=== PATIENT | female | born 1995 | race African-American/Black ===

== ENCOUNTER 2021-12-16 14:43 | Outpatient (CLI) | payer BC, SELFPAY | END 2021-12-16 14:44 | disposition home or self-care (01) | PROVIDERS: Visit Provider Obstetrics & Gynecology | DX: O20.0 Threatened abortion (principal); Z3A.00 Weeks of gestation of pregnancy not specified | CPT/HCPCS: 36415; 84702; 85461 ==

== ENCOUNTER 2021-12-18 11:40 | Outpatient (RCR) | payer BC, SELFPAY | END 2022-03-18 23:59 | disposition home or self-care (01) | LOC: ANHLAB 11:40 | PROVIDERS: Visit Provider Obstetrics & Gynecology | DX: O03.9 Complete or unspecified spontaneous abortion without complication (principal); Z3A.01 Less than 8 weeks gestation of pregnancy | CPT/HCPCS: 36415; 84702 ==

== ENCOUNTER 2023-07-27 16:51 | Outpatient (CLI) | payer BC, SELFPAY ==
--- NOTE | ~2023-07-27 | US_ITS ---
EXAMINATION: US OB <= 14 weeks fetus INDICATION: THREATENED MISCARRIAGE IN FIRST TRIMESTER TECHNIQUE: Sonography of the pelvis was performed by transabdominal and transvaginal techniques. COMPARISON: None. RESULT: Uterus: 8.8 x 6.2 x 8.9 cm. Anteverted. Homogenous myometrium. Intrauterine gestational sac: Single present. Mean Sac Diameter: 2.66 cm, corresponding gestational age 7 week 5 days. Yolk sac: 0.4 cm . Embryo: Single present. [place] rump length: 1.36 cm, corresponding gestational age 7 weeks, 4 days. Gestational heart rate: present 155 bpm. Subgestational hematoma: Present, measuring 1.5 x 0.4 x 1.9. Right ovary: 5.0 x 3.0 x 3.3 cm. Vascular flow is present. 2.9 cm mostly hypoechoic right ovarian cyst with surrounding hypervascularity, likely resolving corpus luteal cyst. Left ovary: 2.9 x 1.4 x 2.2 cm. Vascular flow is present. No adnexal mass. Pelvis free fluid: None. IMPRESSION: Single, live intrauterine gestation. 1.5 cm subcutaneous gestational hematoma. Estimated Gestational Age: 7 weeks, 4 days by crown rump length. DARLENE by ultrasound 03/10/2024. Reviewed, dictated and finalized at location K. IMPRESSION: Single, live intrauterine gestation. 1.5 cm subcutaneous gestational hematoma. Estimated Gestational Age: 7 weeks, 4 days by crown rump length. DARLENE by ultras ound 03/10/2024.
== END 2023-07-27 16:52 | disposition home or self-care (01) ==
LOC: ANHIMG 16:56
PROVIDERS: Visit Provider Obstetrics & Gynecology
DX: O20.0 Threatened abortion (principal); Z3A.01 Less than 8 weeks gestation of pregnancy
CPT/HCPCS: 76801

== ENCOUNTER 2023-08-17 13:34 | Emergency (ER) | payer BC, SELFPAY ==
[2023-08-17 13:48] VITALS: BP 115/78; PULSE 106; RESP 18; TEMP 36.8; O2SAT 99
[2023-08-17 14:17] LABS: Basophils Percent Auto 0.4 % (0.2-1.2); Eosinophils Percent Auto 0.2 % (0-4.4); Hematocrit 42.9 % (37.0-47.0); Hemoglobin 14.1 g/dL (12.0-15.0); Immature Granulocyte Absolute 0.01 K/mm3 (0.00-0.031); Immature Granulocyte Percent A 0.2 % (0-0.5); Lymphocytes Absolute Auto 1.66 K/mm3 (0.9-3.2); Lymphocytes Percent Auto 32.7 % (18.3-44.2); Mean Corpuscular HGB Conc 32.9 g/dl (32-36); Mean Corpuscular Volume 85.3 fl (80-100); Mean Platelet Volume 9.2 fl (7.4-10.4); Monocytes Absolute Auto 0.4 K/mm3 (0.1-0.6); Monocytes Percent Auto 8.7 % (2.6-8.5); Neutrophils Absolute Auto 2.9 K/mm3 (1.3-6.7); Neutrophils Percent Auto 57.8 % (45.5-73.1); Platelet Count Result 261 k/mm3 (150-375); Red Blood Count 5.03 M/mm3 (4.2-5.4); Red Cell Distribution Width 12.5 % (11.5-14.5); White Blood Count 5.1 K/mm3 (4.5-10.0)
[2023-08-17 14:27] LABS: Alanine Aminotransferase 30 U/L (6-35); Albumin Level 4.9 g/dL (3.5-5.1); Alkaline Phosphatase 43 U/L (38-126); Anion Gap 14 mmol/L (8-16); Aspartate Amino Transferase 35 U/L (14-36); Bilirubin,Total 1.1 mg/dL (0.2-1.3); Blood Urea Nitrogen 11 mg/dL (7-17); Calcium 9.9 mg/dL (8.4-10.2); Carbon Dioxide 20 mmol/L (22-30); Chloride 100 mmol/L (98-107); Estimated CRCL calculation 118 ml/min; Estimated Glomerular Filt Rate > 60; Glucose 89 mg/dL (65-110); Potassium 3.3 mmol/L (3.4-5.0); Sodium 134 mmol/L (137-145)
[2023-08-17 15:35] LABS: Appearance Urine Cloudy (Clear); Bacteria Urine None Seen /hpf; Bilirubin Urine 1+ (Negative); Blood Urine Negative (Negative); Color Urine Dark Yellow (Yellow); Glucose Urine UA Negative (Negative); Hyaline Casts Urine Present /lpf; Ketones Urine 4+ mg/dL (Negative); Leukocyte Esterase Ur Negative LEU/UL (Negative); Need Manual Microscopic Reviewed; Nitrate Urine Negative (Negative); Protein Urine 2+ mg/dL (Negative); Specific Grav Ur 1.035 (1.001-1.035); Squamous Epithelial Cell Urine Few /hpf (Few); WBC Urine 0-5 /hpf; pH Urine 5.5 (5.0-9.0)
[2023-08-17 15:38] LABS: Add Urine Microscopic? YES
--- NOTE | 2023-08-17 15:47 | ED.GENADULT ---
HPI - General Adult General Chief complaint: Nausea/Vomiting/Diarrhea Stated complaint: N/V Time Seen by Provider: 08/17/23 15:20 History of Present Illness HPI narrative: 27-year-old female presented the ED for evaluation for nausea vomiting and decreased p.o. intake. Patient is 11 weeks and [facility] Patient was advised to present to the ED for IV fluids. Patient does have lower abdominal cramping. Patient denies any vaginal bleeding vaginal discharge. Patient had been prescribed B6 but she states this made her nauseous. Patient was then afraid to take her Zofran. Related Data Allergies Allergy/AdvReac Type Severity Reaction Status Date / Time No Known Allergies Allergy Verified 08/17/23 15:06 Review of Systems Review of Systems: All systems reviewed & are unremarkable except as noted in HPI and below Exam Narrative: APPEARANCE: Well appearing, no pain, no distress, well-nourished. HEAD: normocephalic, atraumatic. EYES: PERRLA/EOMI, conjunctivae clear. NOSE: Normal no drainage NECK: Supple. No adenopathy, no masses. RESPIRATORY: Airway patent, respirations nonlabored. Clear to auscultation bilaterally, no rales, rhonchi, wheezing. CARDIOVASCULAR: Regular rate and rhythm without murmurs rubs or gallops. ABDOMINAL: Soft, nontender, nondistended, normal bowel sounds MUSCULOSKELETAL: Moves all extremities. Strength/ROM intact, No edema, No calf tenderness. NEURO: Alert. Cranial nerves II through XII intact. Grossly intact SKIN: Warm, dry. Normal Color Course Course Emergency Course: 27-year-old female that is likely presented the ED for evaluation for nausea abdominal cramping and dehydration. Patient has no evidence of urinary tract infection and patient's labs showed no acute abnormalities. Patient did feel improved with rehydration. Vital Signs Vital signs: Vital Signs Temperature 98.2 F 08/17/23 13:48 Pulse Rate 106 H 08/17/23 13:48 Respiratory Rate 18 08/17/23 13:48 Blood Pressure 115/78 08/17/23 13:48 Pulse Oximetry 99 08/17/23 13:48 Oxygen Delivery Room Air 08/17/23 13:48 Temperature 98.2 F 08/17/23 13:48 Pulse Rate 74 08/17/23 17:16 Respiratory Rate 20 08/17/23 17:16 Blood Pressure 115/78 08/17/23 13:48 Pulse Oximetry 100 08/17/23 17:16 Oxygen Delivery Room Air 08/17/23 13:48 Medical Decision Making Differential Diagnosis Differential Diagnosis: UTI, hyperemesis gravidarum, dehydration, abdominal cramping Vital Signs Vital Signs: Vital Signs Temperature 98.2 F 08/17/23 13:48 Pulse Rate 106 H 08/17/23 13:48 Respiratory Rate 18 08/17/23 13:48 Blood Pressure 115/78 08/17/23 13:48 Pulse Oximetry 99 08/17/23 13:48 Oxygen Delivery Room Air 08/17/23 13:48 Temperature 98.2 F 08/17/23 13:48 Pulse Rate 74 08/17/23 17:16 Respiratory Rate 20 08/17/23 17:16 Blood Pressure 115/78 08/17/23 13:48 Pulse Oximetry 100 08/17/23 17:16 Oxygen Delivery Room Air 08/17/23 13:48 Lab Data 08/17/23 14:09 08/17/23 14:09 Labs: Lab Results 08/17/23 08/17/23 Range/Units 14:09 15:07 WBC 5.1 (4.5-10.0) K/mm3 RBC 5.03 (4.2-5.4) M/mm3 Hgb 14.1 (12.0-15.0) g/dL Hct 42.9 (37.0-47.0) % MCV 85.3 (80-100) fl MCH 28.0 (26-34) pg MCHC 32.9 (32-36) g/dl RDW 12.5 (11.5-14.5) % Plt Count 261 (150-375) k/mm3 MPV 9.2 (7.4-10.4) fl Immature Gran % (Auto) 0.2 (0-0.5) % Neut % (Auto) 57.8 (45.5-73.1) % Lymph % (Auto) 32.7 (18.3-44.2) % [place] % (Auto) 8.7 H (2.6-8.5) % Eos % (Auto) 0.2 (0-4.4) % Baso % (Auto) 0.4 (0.2-1.2) % Lymph # (Auto) 1.66 (0.9-3.2) K/mm3 [place] # (Auto) 0.4 (0.1-0.6) K/mm3 Eos # (Auto) 0.0 (0-0.3) K/mm3 Baso # (Auto) 0.0 (0.0-0.1) K/mm3 Abs Immat Gran (auto) 0.01 (0.00-0.031) K/mm3 Absolute Neuts (auto) 2.9 (1.3-6.7) K/mm3 Absolute Nucleated RBC 0.0
[2023-08-17] MEDS: SODIUM CHLORIDE 0.9% IV 1,000 ML 999 ML IV CONT (16:02)
[2023-08-17 17:16] VITALS: PULSE 74; RESP 20; O2SAT 100
== END 2023-08-17 17:16 | disposition home or self-care (01) ==
PROVIDERS: General Practice; Emergency Provider Emergency Medicine
DX: O21.9 Vomiting of pregnancy, unspecified (principal); Z3A.00 Weeks of gestation of pregnancy not specified
CPT/HCPCS: 36415; 80053; 81001; 85025; 96360; 99283; J7030

== ENCOUNTER 2024-02-24 05:07 | Inpatient (IN) | payer BC, OTHER, SELFPAY ==
[2024-02-24] VITALS (14 sets, daily range): BP systolic 99–131; BP diastolic 60–90; PULSE 63–82; RESP 15–18; TEMP 36.4–37.1; O2SAT 99–100; BMI 25.0
[2024-02-24 05:47] LABS: Basophils Percent Auto 0.2 % (0.2-1.2); Eosinophils Percent Auto 0.2 % (0-4.4); Hematocrit 37.3 % (37.0-47.0); Hemoglobin 11.7 g/dL (12.0-15.0); Immature Granulocyte Absolute 0.15 K/mm3 (0.00-0.031); Immature Granulocyte Percent A 1.8 % (0-0.5); Lymphocytes Absolute Auto 2.37 K/mm3 (0.9-3.2); Lymphocytes Percent Auto 27.7 % (18.3-44.2); Mean Corpuscular HGB Conc 31.4 g/dl (32-36); Mean Corpuscular Hemoglobin 26.5 pg (26-34); Mean Corpuscular Volume 84.4 fl (80-100); Mean Platelet Volume 10.3 fl (7.4-10.4); Monocytes Absolute Auto 0.8 K/mm3 (0.1-0.6); Monocytes Percent Auto 9.5 % (2.6-8.5); Neutrophils Absolute Auto 5.2 K/mm3 (1.3-6.7); Neutrophils Percent Auto 60.6 % (45.5-73.1); Platelet Count Result 245 k/mm3 (150-375); Red Blood Count 4.42 M/mm3 (4.2-5.4); Red Cell Distribution Width 13.6 % (11.5-14.5); White Blood Count 8.6 K/mm3 (4.5-10.0)
[2024-02-24] MEDS: OXYTOCIN 30 UNITS/NS 500 ML 30 UNITS/500 ML BAG 999 UNITS IV CONT (05:50)
--- NOTE | 2024-02-24 05:57 | P.PCNOB_ITS ---
OB - Vaginal Delivery Note Procedure Delivery date: 02/24/24 Induction method: None Delivery augmentation: Rupture of Membranes Delivery monitor: External FHT and External Uterine Route of delivery: Episiotomy description: None Laceration Description: None Specimen: No Quantitative Blood Loss (ml): 100 Anesthesia type: None Disposition: Floor Complications: No immediate complications [place] Baby Date of : 02/24/24 Time of : 05:47 Weeks of gestation at delivery: 38 Infant gender: Female presentation: vertex position: Left Occiput Anterior Placenta delivery description: Spontaneous Cord Vessel Description: 3 Vessels score one minute: 9 score five minutes: 9 Narrative: mother and baby skin to skin in stable condition
--- NOTE | 2024-02-24 05:57 | WPDOBADMIT ---
Obstetrics - Admit Note Admission Note: record reviewed. No pertinent additions to the history and/or any subsequent changes in the physical findings that are not consistent with the expected course of the were found. Additions to the history and/or subsequent changes in the physical findings follow. pt arrived with SVE 10/100/0, anticipate vaginal delivery
[2024-02-24] MEDS: IBUPROFEN 600 MG TABLET PO (06:38)
--- NOTE | 2024-02-24 09:30 | PC.NURSE ---
Admitted to at 0900, assessment completed, admission paperwork discussed.
[2024-02-24 12:00] LABS: Rapid Plasma Reagin Non-Reactive (NonReactive)
[2024-02-25] MEDS: IBUPROFEN 600 MG TABLET PO ×2 (01:00→16:40)
[2024-02-25 05:40] VITALS: BP 120/80; PULSE 68; RESP 16; TEMP 37; O2SAT 98
[2024-02-25 06:19] LABS: Hematocrit 31.7 % (37.0-47.0); Hemoglobin 9.7 g/dL (12.0-15.0)
--- NOTE | 2024-02-25 07:37 | PM.OBPNVD ---
OB - PN: Subj Subjective Date/time seen: 02/25/24 07:37 Interval history: pp day 1 doing well breast/bottle feeding plan d/c this evening OB - PN: Obj Data Labs 02/25/24 05:56 Labs: Laboratory Results - last 24 hr 02/24/24 02/25/24 05:30 05:56 Hgb 9.7 L Hct 31.7 L RPR Non-reactive OB - PN A/P Assessment and Plan (1) Vaginal delivery: Code(s): O80 - Encounter for full-term uncomplicated delivery Status: Acute Plan day: 1 Plan: routine care and discharge home Time Spent With Patient Time: Total time spent is greater than 50% in coordination of care (as documented) at patient's floor/unit and/or counseling patient: Review of Systems Review of Systems: All systems reviewed & are unremarkable except as noted in HPI and below Exam Const: General: cooperative and healthy appearing Chest: Chest palpation & inspection: normal inspection of the chest Resp: Effort & Inspection: normal respiratory effort GI: Other: soft Skin: General skin exam: normal color Neuro: General: patient oriented x3 Extrem: Right lower extremity: normal to inspection Left lower extremity: normal to inspection Psych: Appearance: grossly normal
--- NOTE | 2024-02-25 07:39 | PM.OBDSVD ---
DS: Admitting Diagnosis Discharge Date 02/25/2024 Admitting Diagnosis labor DS: Discharge Diagnosis Discharge Diagnosis (1) Vaginal delivery: Code(s): O80 - Encounter for full-term uncomplicated delivery Status: Acute OB - DS: Summary OB Procedures : None OB Procedures Intrapartum: Spontaneous Vag Delivery OB Procedures: : None Peripartum Data Laceration Description: None Episiotomy description: None Time Spent with Patient Time attestation: Total time spent providing and/or coordinating discharge services: DS: Data Data Completed and Pending Labs on day of discharge: Labs from last 24 hours 02/25/24 02/24/24 05:56 05:30 Hgb 9.7 L Hct 31.7 L RPR Non-reactive Discharge Plan Discharge Attending physician on discharge: Moreno Maurer Discharging Clinician: Ami Miranda Patient Disposition: Home, Self-Care Activity: pelvic rest Diet: regular Patient Instructions: Antibiotic Form Stand Alone Forms: General Discharge Information Follow-up/Referrals: Ami Miranda, CNM [Certified Nurse [employer]] - 4 Weeks Discharge Medications: New ibuprofen 600 mg Tablet 600 mg PO Q6H PRN (Reason: Cramping) Qty: 30 0RF Continued valacyclovir [Valtrex] 500 mg Tablet 500 mg PO DAILY Date of admission: 02/24/24 05:07 Primary Care Provider: PHYSICIAN NOT ON STAFF,NONSTAFF Admitting Provider: Moreno Maurer Attending physician on admission: Moreno Maurer Condition: Stable
[2024-02-25 07:40] VITALS: BP 121/82; PULSE 70; RESP 16; TEMP 36.5; O2SAT 100
--- NOTE | 2024-02-25 09:25 | PC.NURSE ---
0755 - Introductions made and name was written on the communication board for inpatient services. (Mother is face timing father of baby in detention so consult was only introduction)
[2024-02-25] MEDS: valACYclovir HCL 500 MG TABLET PO (09:46)
[2024-02-25] MEDS: POLYSACCHARIDE IRON COMPLEX 150 MG CAPSULE PO ×2 (09:46→16:40)
--- NOTE | 2024-02-25 14:10 | PC.NURSE ---
[id number] Purposefully rounded to assess for needs. Upon entering the room mother is using the restroom with infant swaddled and latched. Infants mouth is less than 90 degrees open and mother rates the pinching pain 5 on 0-10 scale. RN GUILLAUME takes infant to change positioning, change the wet diaper and stimulate for good wakefulness to latch. Mother returns from the restroom, gets comfortable, infants wet diaper changed a 2nd time, then placed upright [id number] on mothers chest. Demonstrated to mother how to stimulate with touch, skin, changing position, and massage. Once feeding cues are visualized was brought to the right breast in an asymmetrical position with mouth opened wide, chin buried into the breast with a deep effective latch. Mother denies pain and shared this latch feels so much better. We discuss the swallowing signs as infant demonstrates well. Reinforced understanding of milk production, transition of milk, signs of adequate intake, transition of stool, prevention/relief of engorgement, plugged ducts, mastitis, responsive watching for feeding cues, the different methods of stimulating infant to breastfeed 1-3 hours after the start of the last feeding, community resources, and when to call a provider using the resource of the feeding sheet, hand outs, along with the mom and baby guide. Mother voiced understanding of the information shared, is confident to continue effectively her at home, when to call for assistance, denies any additional assistance or education at this time. Reviewed with mother that if is receiving bottles of formula to protect her milk supply with pumping. Mother bottle fed through the night without pumping. Offered assistance to mother to assess pumping if she desires. Shared with mother that if is effectively 8-12 times in 24 hours she would not need to pump. Mother voiced understanding of the information but is distracted by her phone with her mother calling to ask questions. Reported to the Primary RN.
--- NOTE | 2024-02-25 16:02 | PC.NURSE ---
Patient viewed the discharge video Mother & Baby Care, The First Two Weeks . Patient was given the opportunity and encouraged to ask questions. Patient verbalized understanding of information shared and has been given the mother/baby guide for home reference.
[2024-02-26 08:30] VITALS: BP 108/77; PULSE 78; RESP 18; TEMP 36.6; O2SAT 100
== END 2024-02-25 19:06 | disposition home or self-care (01) | DRG 807 ==
LOC: ANHLDR 05:34 → ANHOB2 09:03
PROVIDERS: Advanced Practice Midwife; Admitting Provider Obstetrics & Gynecology; Visit Provider Obstetrics & Gynecology
DX: O62.3 Precipitate labor (principal); Z37.0 Single live birth; Z3A.38 38 weeks gestation of pregnancy
CPT/HCPCS: 36415; 85014; 85018; 85025; 86592; 86850; 86900; 86901; A9270; J2590

== ENCOUNTER 2024-06-20 06:28 | Emergency (ER) | payer OTHER, SELFPAY ==
[2024-06-20 06:45] VITALS: BP 129/89; PULSE 98; RESP 18; TEMP 36.6; O2SAT 98
--- NOTE | 2024-06-20 06:50 | ED.URI ---
HPI - URI/Sore Throat General Chief Complaint: Upper Respiratory Infection Stated Complaint: sinus pressure Time Seen by Provider: 06/20/24 06:50 Source: patient Limitations: no limitations History of Present Illness HPI Narrative: Patient is a 28-year-old female presents to the emergency department complete congestion, runny nose, body aches, chills, sore throat for the past 3 days. Patient has not taken her temperature at home. Patient notes that she has been taking [id number] medications for symptoms. Patient denies any sick contacts. Patient denies any cough, chest pain, difficulty breathing, nausea, diarrhea. Patient admits to 1 episode of emesis yesterday patient denies urinary discomfort. Related Data Home Medications Medication Instructions Recorded Confirmed valacyclovir 500 mg tablet 500 mg PO DAILY 01/17/24 01/17/24 (Valtrex) Allergies Allergy/AdvReac Type Severity Reaction Status Date / Time No Known Allergies Allergy Verified 08/17/23 15:06 Review of Systems Review of Systems: A 10 system review of systems was completed on the patient and is negative except for what is stated in the HPI. Nursing and ancillary documentation was reviewed. [facility] Family History Family History (Updated 01/17/24 @ 13:51 by Alisha Diaz RN) Father Diabetes mellitus Grandparent Cervical cancer Grandparent Cerebrovascular accident Social History Social History Smoking status: Never smoker Second hand tobacco smoke exposure: No Substance use: never Do You Feel Safe in your Home?: Yes Lack of Transportation: No Lack of Food: Never True Current Housing: I Have Housing Concerned About Future Housing: No Difficulty Paying Gas/Electric Bills: No Difficulty Paying for Meds: No Currently Unemployed: No Education: High School Diploma/GED Difficulty w/ Childcare or Family Care: No Spiritual care concerns: No Comments At time of signature, I have reviewed and agree with nursing past medical, surgical, social and family history unless otherwise noted. Please see the nursing chart for further information. There is no relevant family history pertinent to the presenting complaint. Exam Narrative: CONST: No acute distress. Well nourished. HENMT: Head is normocephalic and atraumatic. Moist mucous membranes. No posterior oropharynx erythema. Bilateral nasal turbinate edema. Bilateral clear rhinorrhea. EYES: No conjunctival icterus, injection, or pallor. PERRL. NECK: No meningeal signs. No cervical lymphadenopathy. RESP: Able to speak in full sentences. Normal respiratory effort. CTAB. CARDIO: Regular rate. Regular rhythm. 2+ DP and radial pulses bilaterally. GI: Nondistended. No tenderness to palpation. Soft. : No CVA tenderness to palpation. SKIN: No rashes or lesions noted on exposed skin. NEURO: Oriented x3. Moves all extremities. EXTREM/MSK/BACK: No pedal edema. PSYCH: Normal affect. Course Vital Signs Vital signs: Vital Signs Temperature 97.8 F 06/20/24 06:45 Pulse Rate 98 06/20/24 06:45 Respiratory Rate 18 06/20/24 06:45 Blood Pressure 129/89 06/20/24 06:45 Pulse Oximetry 98 06/20/24 06:45 Oxygen Delivery Room Air 06/20/24 06:45 Temperature 97.8 F 06/20/24 06:45 Pulse Rate 98 06/20/24 06:45 Respiratory Rate 18 06/20/24 06:45 Blood Pressure 129/89 06/20/24 06:45 Pulse Oximetry 98 06/20/24 06:45 Oxygen Delivery Room Air 06/20/24 06:45 MDM - URI/Sore Throat MDM Narrative Medical decision making narrative: Patient presents with the above complaint. Initial vitals are remarkable for no significant abnormalities. Physical examination as noted above. Differential diagnosis includes was not limited to: Viral syndrome, URI. Plan discussed: COVID/RSV chest influenza swab, Tylenol, Sudafed. Lab Data Attestation: I reviewed the patient's lab results. Labs: Lab Results 06/20/24 Range/Units
[2024-06-20] MEDS: ACETAMINOPHEN 500 MG TABLET 1000 MG PO (06:58)
[2024-06-20] MEDS: PSEUDOEPHEDRINE HCL 30 MG TABLET 60 MG PO (06:58)
[2024-06-20 07:19] LABS: Influenza A QL RT-PCR Negative (Negative); Influenza B QL RT-PCR Negative (Negative); RSV RNA, RT-PCR Negative (Negative); SARS-CoV-2 RNA PCR Negative (Negative)
[2024-06-20 07:34] VITALS: BP 120/70; PULSE 80; RESP 18; TEMP 36.7; O2SAT 99
== END 2024-06-20 07:35 | disposition home or self-care (01) ==
LOC: ANHED 07:02
PROVIDERS: Emergency Provider Student in an Organized Health Care Education/Training Program
DX: J06.9 Acute upper respiratory infection, unspecified (principal); Z20.822 Contact with and (suspected) exposure to COVID-19
CPT/HCPCS: 87637; 99283; A9270

== ENCOUNTER 2024-12-21 08:52 | Emergency (ER) | payer OTHER, SELFPAY ==
--- NOTE | ~2024-12-21 | CT_ITS ---
EXAMINATION: CT abdomen pelvis w con DATE: 12/21/2024 10:58 INDICATION: Abdominal pain. Vomiting. TECHNIQUE: Computed tomography (CT) of the abdomen and pelvis was performed with 100 mL Omnipaque 350 intravenous contrast. Automated exposure control and iterative reconstruction technique were employe d. The dose-length product was 348.17 mGy-cm. COMPARISON: None. FINDINGS: The visualized portions of the lung bases demonstrate mild atelectasis. No pleural effusion . The heart size is normal. No pericardial effusion. The liver, gallbladder, spleen, pancreas, adrena l glands, and kidneys are normal. There are no dilated loops of bowel. The appendix is normal. There are no pathologically enlarged lymph nodes. There is physiologic fluid in the pelvis. There is mild l umbar spondylosis. IMPRESSION: 1. No etiology for the patient's symptoms. Reviewed, dictated and finalized at location A. 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
[2024-12-21 09:00] VITALS: BP 124/80; PULSE 73; RESP 15; TEMP 36.4; O2SAT 100
--- OUTSIDE RECORDS SUMMARY | 2024-12-21 09:11 | XMS_ITS | Patient Health Summary ---
Author Organization [facility] Address [address] [address] Care Team Providers Care Fueler Name Role Phone Unavailable Primary Care Provider Unavailabl e Note from [facility] [place],non-owned Affiliates and Associated Physician Practices is amultiple site organization consisting of ambulatory clinics and hospital sitesin [place], [place], [place] and [place]. This disclosure is being madepursuant to the Care Everywhere program and may not contain all information available regarding this patient. Last updated 18.[facility] [employer] Allergies No known active allergies Medications * Be aware that medications may not be up to date on this document. Alwaysverify current medications with the patient. * Progesterone 200 MG capsule(Started 11/05/2023) Take 1 (one) capsule by mouth at bedtime 1 refill by 11/04/2024 Active Problems Problem Noted Date Diagnosed Date Short cervix 11/05/2023 Social History Tobacco Use Types Packs/Day Years Used Date Smoking Tobacco: Never Smokeless Tobacco: Never Tobacco Cessation:Counseling Given: Not Answered Alcohol Use Standard Drinks/Week Comments Never 0 (1 standard drink = 0.6 oz pur e alcohol) Sex and Gender Information Value Date Recorded Sex Assigned at Not on file Gender Identity Not on file Sexual Orientation Not on file Last Filed Vital Signs Vital Sign Reading Time Taken Comments Blood Pressure 112/68 11/05/2023 4:43 PM [employer] C[employer]TER Pulse - - Temperature 36.8 ??C (98.3 ??F) 11/05/2023 1:43 PM CS T Respiratory Rate 18 11/05/2023 1:43 PM [employer] AND [employer] C[employer]TER Oxygen Saturation 100% 11/05/2023 1:45 PM [employer] AND [employer] C[employer]TER Inhaled Oxygen Concentration - - Weight 64.9 kg (143 lb) 11/05/2023 1:27 PM [employer] C[employer] Height 175.3 cm (5' 9 ) 11/05/2023 1:38 PM [employer] AND [employer] C[employer]TER Body Mass Index 21.12 11/05/2023 1:27 PM [employer] C[employer]TER Procedures * SONOGRAM - COMPLETE(Performed 11/05/2023) Results * SONOGRAM - COMPLETE (11/05/2023 2:23 PM [employer] AND LABEL CUTTER) Anatomical Region Laterality Modality Other 11/05/2023 2:23 PM TAG AND LABEL CUTTER Narrative 11/05/2023 4:12 PM TAG AND LABEL CUTTER ?[facility] [place] [facility] ?PHONE: ??FAX: Pat. Name: ?NORMA LEAL Pat. No: ?[id number] Study Date: ?? 11/05/2023 ??2:23pm , Age: ? 1995, 28 Pregnancies: ?? 2, Ab 1 Height: ? 69 in Weight: ? 130 lb LMP: ?05/30/2023 GA by LMP: ?22w5d GA by US: ? 22w2d ?? DARLENE: 03/08/2024 GA Selected: ??22w5d (LMP) DARLENE: ?03/05/2024 Referring MD: Ari Maurer MD Parachute Repairer: ??Shruthi Marte RDMS CPT4: ? 92740,38031 BMI: ?19.2 Hist/Ind: ? Short cervix on outside exam MEASUREMENTS & AGE ? GROWTH EVALUATION Measurement ??GA ? Range ? Srce %for GA Ratios ----- ---- ------- BPD ??5.5 cm 22w5d (38m5s-25n5m) Hadl BPD 44% FL/BPD 0.67 HC ??19.8 cm 22w0d (00i0t-70b3m) Hadl HC ??11% FL/AC ??0.20 (0.20 - 0.24) AC ??18.0 cm 22w6d (48k9w-91m1h) Hadl AC ??47% HC/AC ??1.10 (1.04 - 1.23) FL ?? 3.7 cm 21w5d (33g7t-39c7s) Hadl FL ??12% CI ? 0.80 (0.70 - 0.86) HL ?? 3.8 cm 23w4d (20w0u-64p2m) Charles HL ??64% Cere 2.3 cm 21w2d (13a1e-13b0u) Hill Cere14% GA for sonogram 22w2d (49u5w-79f8y) ?? Weight Estimate: based on (BPD,HC,AC,FL) Avg ?Weight: 494 gm (422-567gm) Hadloc ? : 1lbs, 1oz ? Normal: 541 gm (406-676gm) Hadloc ? Wt% ? 26% for 22w5d Cervix: ??Length: 2.2 cm ??Range: 2.2-3.0 cm ??Approach: transvaginal ??Funneling: not present Heart Rate: 143 bpm Amniotic Fluid Index: 05.7cm (Deepest Pocket) PROCEDURE, TECHNIQUE Technique: transabdominal, transvaginal EVAL, PLACENTA Presentation: breech Umbilical Cord: 3 Vessels Placenta: anterior Previa: no previa seen Heart Rate: 143 bpm Amniotic Fluid Volume: normal Anatomy!Normal!Abnormal!Suboptimal!Prev. Seen!Comments Cranium ?! ?? x ??! ?! ?! ?! Mdl (CSP/Thal! ?? x ??! ?! ?! ?! Ventricles ?? ! ?? x ??! ?! ?! ?! Choroid Plexu! ?? x ??! ?! ?! ?! Cerebellum ?? ! ?? x ??! ?! ?! ?! Cisterna M. ??! ?? x ??! ?! ?! ?! Nuchal Fold ??! ?? x ??! ?! ?! ?! Orbits ? ! ?? x ??! ?! ?! ?! Profile ?! ?? x ??! ?! ?! ?! Nasal Bone ?? ! ?? x ??! ?! ?! ?! Lip ?! ?? x ??! ?! ?! ?! Spine ?! ?! ?! ? x ?! ?! Lungs ?! ?! ?! ? x ?! ?! 4 Chamber Hea! ?! ?! ? x ?! ?! LVOT ? ! ?? x ??! ?! ?! ?! RVOT ? ! ?? x ??! ?! ?! ?! 3 Vessel View! ?? x ??! ?! ?! ?! Cross-over ?? ! ?? x ??! ?! ?! ?! Ductal Arch ??! ?? x ??! ?! ?! ?! Aortic Arch ??! ?? x ??! ?! ?! ?! Caval View ?? ! ?? x ??! ?! ?! ?! Situs ?! ?! ?! ? x ?! ?! Diaphragm ?! ?? x ??! ?! ?! ?! Stomach ?! ?? x ??! ?! ?! ?! Bowel ?! ?? x ??! ?! ?! ?! Kidneys ?! ?? x ??! ?! ?! ?! Bladder ?! ?? x ??! ?! ?! ?! 3 Vessel Cord! ?? x ??! ?! ?! ?! Cord In! ?? x ??! ?! ?! ?! Upper Extremi! ?? x ??! ?! ?! ?! Hands ?! ?! ?! ? x ?! ?! Lower Extremi! ?? x ??! ?! ?! ?! Feet ? ! ?! ?! ? x ?! ?! External Cheri! ?! ?! ? x ?! ?! Placental Cor! ?! ?x ?? ! ?! ?!membrane ?seperation at ?placenta cord ?insertion CLINICAL SUMMARY OB triage patient with what appears to be a shortened cervix at outside facility here for further evaluation. ??Her primary OB provider is Dr. Maurer. A single fetus is seen in breech presentation. ??The measurements today are consistent with appropriate growth for the DARLENE provided. ??The DARLENE is based on LMP and a prior ultrasound. ??The amniotic fluid volume is within normal limits. ?? Anterior normal appearing placenta. The anatomical survey showed no gross abnormalities however certain structures remains suboptimally visualized due to positioning. IMPRESSION: Single, live, intrauterine at 22w5d ?? size is consistent with known DARLENE ?? Amniotic fluid volume: within normal limits ?? No major malformations were seen within the limitations of ultrasound. ??But certain structures remains suboptimally visualized due to the above noted limitations. ?? Short transvaginal cervical length: ?? Cervix measures 2.2 cm closed with cervical lengths range 2.2 cm-3.0 cm. ??No funneling ?? Both ultrasound and screening have their limitations in detecting all congenital anomalies and chromosomal abnormalities/inherited disorders or genetic syndromes. Case was discussed with Dr. Fernando [facility] fellow on service. RECOMMEND: Management as per inpatient service. Thank you for allowing us the opportunity to care for your patient. ?? cc: ??Inpatient at time of study ? Silvio Liu, DO ?<Electronic Signature> ??11/05/2023 04:12pm Carlos Mccormick MD [facility] ORDERABLES
--- OUTSIDE RECORDS SUMMARY | 2024-12-21 09:11 | XMS_ITS | Referral Summary ---
Author Organization [facility] Address [address] [place] [address] Care Team Providers Care Replenishment Analyst Name Role Phone Unavailable Primary Care Provider Unavailabl e Source Comments [facility],non-owned Affiliates and Associated Physician Practices is amultiple site organization consisting of ambulatory clinics and hospital sitesin [place], [place], [place] and [place]. This disclosure is being madepursuant to the Care Everywhere program and may not contain all information available regarding this patient. Last updated 18.[facility] [employer] Allergies No known active allergies Medications * Be aware that medications may not be up to date on this document. Alwaysverify current medications with the patient. Medication Sig Dispensed Refills Start Date End Date Status Progesterone 200 MG capsule Take 1 (one) capsule by mouth at bedtime 60 capsule 1 11/05/2023 Active Active Problems Problem Noted Date Diagnosed Date [...] Comments Blood Pressure 112/68 11/05/2023 4:43 PM RESOURCE RECOVERY SPECIALIST Pulse - - Temperature 36.8 ??C (98.3 ??F) 11/05/2023 1:43 PM CS T Respiratory Rate 18 11/05/2023 1:43 PM RESOURCE RECOVERY SPECIALIST Oxygen Saturation 100% 11/05/2023 1:45 PM RESOURCE RECOVERY SPECIALIST Inhaled Oxygen Concentration - - Weight 64.9 kg (143 lb) 11/05/2023 1:27 PM RESOURCE RECOVERY SPECIALIST Height 175.3 cm (5' 9 ) 11/05/2023 1:38 PM RESOURCE RECOVERY SPECIALIST Body Mass Index 21.12 11/05/2023 1:27 PM RESOURCE RECOVERY SPECIALIST Functional Status Functional Status Response Date of Assess ment Is person deaf or have serious hearing difficult y? No 11/05/2023 Is person blind or have serious difficulty seein g? No 11/05/2023 Does person have serious dif ficulty walking/climbing stairs? No 11/05/2023 Does person have difficulty dressing/bathing? No 11/05/2023 Does person have difficulty doing errands alone? No 11/05/2023 Cognitive Status Response Date of Assessm ent Does person have difficulty concentrating/remembering/making decisions? No 11/05/2023 Plan of Treatment Not on file
--- OUTSIDE RECORDS SUMMARY | 2024-12-21 09:11 | XMS_ITS | Clinical Summary ---
Author Organization [facility] Address [address] [place] [address] Care Team Providers Care Mid Level Clinician Name Role Phone Unavailable Primary Care Provider Unavailabl e Source Comments [facility],non-owned Affiliates and Associated Physician Practices is amultiple site organization consisting of ambulatory clinics and hospital sitesin [place], [place], [place] and [place]. This disclosure is being madepursuant to the Care Everywhere program and may not contain all information available regarding this patient. Last updated 18.[facility] [employer] Allergies No known active allergies Medications * [...] Comments Blood Pressure 112/68 11/05/2023 4:43 PM INVESTMENT ACCOUNTANT Pulse - - Temperature 36.8 ??C (98.3 ??F) 11/05/2023 1:43 PM CS T Respiratory Rate 18 11/05/2023 1:43 PM INVESTMENT ACCOUNTANT Oxygen Saturation 100% 11/05/2023 1:45 PM INVESTMENT ACCOUNTANT Inhaled Oxygen Concentration - - Weight 64.9 kg (143 lb) 11/05/2023 1:27 PM INVESTMENT ACCOUNTANT Height 175.3 cm (5' 9 ) 11/05/2023 1:38 PM INVESTMENT ACCOUNTANT Body Mass Index 21.12 11/05/2023 1:27 PM INVESTMENT ACCOUNTANT Plan of Treatment Health Maintenance Due Date Last Done Comments HIV SCREENING 2012 HEPATITIS C SCREENING 10/25/2015 DTAP/TDAP/TD VACCINES (1 - Tdap) 2016 HEPATITIS B VACCINE (1 of 3 - 19+ 3-dose series) 2016 COVID-19 VACCINE (3 - 2023-2 5 season) 2024 04/24/2021, 04/03/2021 INFLUENZA VACCINE (#1) 2024 12/05/2010 DEPRESSION SCREENING 11/22/2024 PAP SMEAR 08/04/2026 08/04/2023, 08/04/2023 ZOSTER VACCINE (1 of 2) 2047 HIB VACCINE Aged Out No longer eligi ble based on patient's age to complete this topic HPV VACCINE Aged Out No longer eligi ble based on patient's age to complete this topic MENINGOCOCCAL (Group B) VACCINE Aged Out No longer eligible b ased on patient's age to complete this topic MENINGOCOCCAL VACCINE Aged Out No lala liliane eligible based on patient's age to complete this topic PNEUMOCOCCAL VACCINE Aged Out No long er eligible based on patient's age to complete this topic
--- OUTSIDE RECORDS SUMMARY | 2024-12-21 09:12 | XMS_ITS | Referral Summary ---
Author Organization [facility] Address [address] [place] [address] Care Team Providers Care Well Drill Operator Cable Tool Name Role Phone No, Physician Primary Care Provider [phone] Allergies No known active allergies Medications pyridoxine (VITAMIN B6) 25 mg tablet Take 1 tablet (25 mg total) by mouth every 8 (eight) hours for 7 days 21 tablet 07/25/2023 Active Social History Tobacco Use Types Packs/Day Years Used Date Smoking Tobacco: Never Tobacco Cessation:Counseling Given: Not Answered Alcohol Use Standard Drinks/Week Comments Never 0 (1 standard drink = 0.6 oz pur e alcohol) Personal Safety Answer Date Recorded Have you ever been in or are you currently in a harmful physical or emotional relationship or is someone making you feel afraid or unsafe? Denies 11/03/2023 Comments Unknown Sex and Gender Information Value Date Recorded Sex Assigned at Not on file Legal Sex Female 7:26 PM TELE MARKETING EXECUTIVE Gender Identity Not on file Sexual Orientation Not on file Last Filed Vital Signs Vital Sign Reading Time Taken Comments Blood Pressure 106/72 11/03/2023 3:23 PM TELE MARKETING EXECUTIVE Pulse 83 11/03/2023 3:23 PM TELE MARKETING EXECUTIVE Temperature 36.5 ??C (97.7 ??F) 11/03/2023 11:[address] Respiratory Rate 16 11/03/2023 3:23 PM TELE MARKETING EXECUTIVE Oxygen Saturation 100% 11/03/2023 3:23 PM TELE MARKETING EXECUTIVE Inhaled Oxygen Concentration - - Weight 64.9 kg (143 lb 1.3 oz) 11/03/2023 11:33 AM TELE MARKETING EXECUTIVE Height 175.3 cm (5' 9 ) 11/03/2023 11:33 AM TELE MARKETING EXECUTIVE Body Mass Index 21.13 11/03/2023 11:33 AM TELE MARKETING EXECUTIVE Plan of Treatment Not on file Insurance [employer] [place] Care Teams Well Drill Operator Cable Tool Relationship Specialty Start Date End Date No, Physician PCP - General 07/24/23
--- OUTSIDE RECORDS SUMMARY | 2024-12-21 09:12 | XMS_ITS | Data Portability ---
Author Organization [facility], [facility] Address [address] [place] [address] Assessment No assessment recorded. Plan of Treatment Reminders Order Date Submit Date Provider Last Modified By Organization Details Last Modified Time Details Appointments None recorded. Lab CT + NG RNA, PCR, unspecified specimen 2020 [employer] [facility], [address] [place], [address], 13:35:08 trichomonas vaginalis RNA 2020 [employer] [facility], [address] [place], [address], 13:35:09 mycoplasma genitalium DNA, qualitative , PCR 2020 [employer] [facility], [address] [place], [address], 23:14:26 mycoplasma + ureaplasma DNA, unspecified specimen 2020 [employer] [facility], [address] [place], [address], 13:35:08 Referral None recorded. Procedures None recorded. Surgeries None recorded. Imaging None recorded. Medication Orders None recorded. Patient TargetsNo targets recorded. Patient InstructionsNo instructions recorded. Reason for Referral None Reported. Problems Name Problem SNOMED Code Status Onset Date Resolution Date Notes Provider Name and Address Organization Details Recorded Time Recurrent herpes simplex 34851720 Active Julio Tay MD [address] [place], [address] , [facility] 17:23:17 Problem Notes None recorded. Procedures Surgical History Date Name Laterality Status Provider Name and Address Organization Details Recorded Time endoscopy completed Julio Tay MD [address] [place], [address], [facility] 05/13/2021 17:23:53 Imaging Results None recorded. Procedure Notes None recorded. Medical Equipment None Reported. Allergies No known drug allergies Medications Name Sig Start Date Stop Date Status Note LastModified by Organization Details LastModified Time clindamycin HCl 300 mg capsule TAKE 1 CAPSULE BY MOUTH TWICE DAILY FOR 7 DAYS active Not Available Not Available No t Available fluconazole 150 mg tablet TAKE 1 TABLET BY MOUTH NOW active Not Available Not Available No t Available fluconazole 200 mg tablet TAKE 1 TABLET BY MOUTH EVERY OTHER DAY FOR 3 DOSES active Not Available Not Available Not Available metronidazol e 0.75 % (37.5 mg/5 gram) vaginal gel INSERT ONE APPLICATORF UL VAGINALLY AT BEDTIME FOR 5 NIGHTS active Not Available Not Available No t Available metronidazol e 500 mg tablet TK 1 T PO Q 12 H FOR 7 DAYS active Not Available Not Available No t Available valacyclovir 500 mg tablet TAKE 1 TABLET BY MOUTH EVERY DAY active Not Available Not Available No t Available ondansetron 8 mg disintegrati ng tablet DISSOLVE 1 TABLET ON THE TONGUE TWICE DAILY FOR 15 DAYS NEEDED active Not Available Not Available No t Available nystatin-tri amcinolone 100,000 unit/gram-0. 1 % topical ointment APPLY TOPICALLY TO THE AFFECTED AREA TWICE DAILY FOR 7 DAYS NEEDED active Not Available Not Available No t Available famotidine 20 mg tablet TAKE 1 TABLET BY MOUTH EVERY DAY active Not Available Not Available No t Available benzonatate 100 mg capsule TAKE ONE CAPSULE BY MOUTH THREE TIMES DAILY NEEDED FOR COUGH active Not Available Not Available No t Available ondansetron 4 mg disintegrati ng tablet DISSOLVE ONE TABLET BY MOUTH EVERY 6 TO 8 HOURS NEEDED FOR NAUSEA active Not Available Not Available No t Available amoxicillin 875 mg-potassium clavulanate 125 mg tablet TAKE 1 TABLET BY MOUTH EVERY 12 HOURS active Not Available Not Available No t Available ID NOW COVID-19 Test Kit TEST DIRECTED active Not Available Not Available No t Available Vitals Date Recorded Body height Heart rate Respiratory rate Body temperature Body mass index (BMI) Body weight Oxygen saturation Oxygen saturation in Arterial blood by Pulse oximetry Systolic blood pressure Diastolic blood pressure Provider Name and Address Organization Details Last Updated DateTime 175.26 cm 71 /min 16 /min 97.6 [degF] 19.9 kg/m2 77220.9 7 g 100 % 100 % 108 mm[Hg] 65 mm[Hg] Julio Tay MD [address] [place] [address], [phone] 17:22:03 Social History Question Answer Notes LastModified by Organizat ion Details LastModified Time Tobacco Smoking Status Never Smoker Julio Tay MD [address] [place] [address], [phone], [facility] 05/13/2021 17:22:57 Which Illicit Or Recreational Drugs Have You Used? Weeds Information not available 05/13/2021 Do You Use Any Illicit Or Recreational Drugs? Yes Information not available 05/13/2021 Sex: Unknown Functional Status None recorded. Mental Status None recorded. Family History Nothing Reported. Medical History Condition Response GERD/Reflux Y Gynecological History Statement/Question Response Current Control Method None Date of LMP 04/28/2021 LMP Approximate Obstetrics History GPAL:G 0 P 0 0 0 0 Past Encounters Encounter ID Performer Location Encounter Start Date Encounter Closed Date Diagnosis/Indication Diagnosis SNOMED-CT Code Diagnosis ICD10 Code Diagnosis Note [id number] Julio Tay MD [facility] [address] [place] [phone] 05/13/2021 16:53:27 05/17/2021 17:02:15 Venereal disease screening 142711699 Z11.3 Health Concerns Section Related Observation LastModified by Organization Detai ls LastModified Time None Recorded Concern Status LastModified by Organization Details LastModified Time None Recorded Advance Directives Directive None Recorded Payers Encounter Date Sequence Insurance Name Policy Number Policy Maldonado Covered Member ID Maldonado Member ID Guarantor Name 05/13/2021 1 [place] [id number] Norma Leal [id number] Norma Leal Notes Date Note Type Note Provider Name and Address Organization Details Recorded Time 05/13/2021 text/html Sexually Transmi tted InfectionReported bypatient.Context:last sexual partner: male partner; sexual partner history: does not know Associated Symptoms:no abdominal pain; no anal warts; no back pain; no chills; no constipation; no diarrhea; no dribbling; no dysuria; no emptying; no fever; no frequency; no groin pain; no hematuria; no nausea; no nocturia; no odor; no painful intercourse; no penile blisters; no penile rash; no penile warts; no perineum warts; no pruritus; no straining stream; no stress incontinence; no temperature; no urethral discharge; no urethral itch; no urgency; no urge incontinence; no vomiting; no weight loss Julio Tay MD [address] [place], [address], [facility] 05/13/2021 17:28:57 OBGyn Episode No OBEpisode recorded.
--- OUTSIDE RECORDS SUMMARY | 2024-12-21 09:12 | XMS_ITS | Clinical Summary ---
Author Organization [facility] Address [address] [place] [address] Phone Care Team Providers Care Hand Slitter Name Role Phone Provider, Unknown Primary Care Provider Unavaila ble Social History Tobacco Use Types Packs/Day Years Used Date Smoking Tobacco: Never Assessed Comments Unknown Sex and Gender Information Value Date Recorded Sex Assigned at Not on file Legal Sex Female 10:27 PM CREDIT CARD ASSOCIATE Gender Identity Not on file Sexual Orientation Not on file Plan of Treatment Not on file Insurance [place]ID [place] Care Teams Hand Slitter Relationship Specialty Start Date End Date Provider, Unknown UNKNOWN PCP - General 10/28/16
--- OUTSIDE RECORDS SUMMARY | 2024-12-21 09:12 | XMS_ITS | Clinical Summary ---
Author Organization [facility] Address [address] [place] [address] Care Team Providers Care Research Neuropsychologist Name Role Phone No, Physician Primary Care Provider [phone] Allergies No known active allergies Medications pyridoxine [...] on file Legal Sex Female 7:26 PM CHILD AND ADOLESCENT THERAPIST Gender Identity Not on file Sexual Orientation Not on file Obstetrics History Last Filed Vital Signs Vital Sign Reading Time Taken Comments Blood Pressure 106/72 11/03/2023 3:23 PM CHILD AND ADOLESCENT THERAPIST Pulse 83 11/03/2023 3:23 PM CHILD AND ADOLESCENT THERAPIST Temperature 36.5 ??C (97.7 ??F) 11/03/2023 11:[address] Respiratory Rate 16 11/03/2023 3:23 PM CHILD AND ADOLESCENT THERAPIST Oxygen Saturation 100% 11/03/2023 3:23 PM CHILD AND ADOLESCENT THERAPIST Inhaled Oxygen Concentration - - Weight 64.9 kg (143 lb 1.3 oz) 11/03/2023 11:33 AM CHILD AND ADOLESCENT THERAPIST Height 175.3 cm (5' 9 ) 11/03/2023 11:33 AM CHILD AND ADOLESCENT THERAPIST Body Mass Index 21.13 11/03/2023 11:33 AM CHILD AND ADOLESCENT THERAPIST Plan of Treatment Health Maintenance Due Date Last Done Comments Cervical Cancer Screening 1997 Depression Screening 1997 Hepatitis C Screening 1997 Regular Well Visit/Exam 18-64 2015 DTaP/Tdap/Td Vaccine (7 - Td or Tdap) 05/18/2022 05/18/2012, 04/24/2002, 02/26/1999, Additional history exists Covid-19 Vaccine ( season) 2024 04/24/2021, 04/03/2021 Influenza Vaccine (#1) 2024 12/05/2010 HPV Vaccines Completed 05/18/2012, 11/22, 07/30/2010 Varicella Vaccines Completed 05/18/2012, 11/01/1998 Pneumococcal vaccine <65 Aged Out No longer eligible based on patient's age to complete this topic Insurance [facility]IA [facility] Care Teams Research Neuropsychologist Relationship Specialty Start Date End Date No, Physician PCP - General 07/24/23
--- OUTSIDE RECORDS SUMMARY | 2024-12-21 09:12 | XMS_ITS | Clinical Summary ---
Author Organization [facility] Address [address] [place] [address]. [place], [place] [address] [place] [address] Care Team Providers Care Firer Bisque Kiln Name Role Phone Unavailable Primary Care Provider Unavailabl e Allergies No known active allergies Social History Tobacco Use Types Packs/Day Years Used Date Smoking Tobacco: Never Smokeless Tobacco: Never Alcohol Use Standard Drinks/Week Comments Yes 0 (1 standard drink = 0.6 oz pur e alcohol) socially Comments Unknown Sex and Gender Information Value Date Recorded Sex Assigned at Not on file Legal Sex Female 6:16 PM CDT Gender Identity Not on file Sexual Orientation Not on file Last Filed Vital Signs Vital Sign Reading Time Taken Comments Blood Pressure 115/89 07/10/2019 12:27 PM CDT Pulse 86 07/10/2019 12:27 PM CDT Temperature 37.2 ??C (99 ??F) 07/10/2019 12: 27 PM CDT Respiratory Rate 17 07/10/2019 12:2 7 PM CDT Oxygen Saturation 99% 07/10/2019 12: 27 PM CDT Inhaled Oxygen Concentration - - Weight 63.4 kg (139 lb 12.8 oz) 019 12:27 PM CDT Height 175.3 cm (5' 9 ) 07/10/2019 12:2 7 PM CDT Body Mass Index 20.64 07/10/2019 12:27 PM CDT Plan of Treatment Health Maintenance Due Date Last Done Comments Cervical Cancer Screening Pa p Smear (Age 21 to 29) Every 3 Years 1997 Cervical Cancer Screening 1997 Annual Physical 2000 Hepatitis C 2015 DTaP, Tdap and Td Vaccines ( 1 - Tdap) 2016 Hepatitis B Vaccines (1 of 3 - 19+ 3-dose series) 2016 COVID-19 Vaccine (2023-2 5 season) 2024 Influenza Adult (#1) 2024 HPV Vaccines Aged Out No longer eligi ble based on patient's age to complete this topic Meningococcal B Vaccine Aged Out No l onger eligible based on patient's age to complete this topic Meningococcal Vaccine Aged Out No lala liliane eligible based on patient's age to complete this topic Pneumococcal Vaccine: Pediat rics (0 to 5 Years) and At-Risk Patients (6 to 64 Years) Aged Out No longer eligible b ased on patient's age to complete this topic RSV Immunizations Under 20 Months Aged Out No longer eligible based on patient's age to complete this topic
[2024-12-21 09:56] LABS: Basophils Percent Auto 0.1 % (0.2-1.2); Hematocrit 40.8 % (37.0-47.0); Hemoglobin 12.8 g/dL (12.0-15.0); Immature Granulocyte Absolute 0.03 K/mm3 (0.00-0.031); Immature Granulocyte Percent A 0.4 % (0-0.5); Lymphocytes Absolute Auto 0.34 K/mm3 (0.9-3.2); Lymphocytes Percent Auto 4.3 % (18.3-44.2); Mean Corpuscular HGB Conc 31.4 g/dl (32-36); Mean Corpuscular Hemoglobin 26.4 pg (26-34); Mean Corpuscular Volume 84.1 fl (80-100); Mean Platelet Volume 9.2 fl (7.4-10.4); Monocytes Absolute Auto 0.3 K/mm3 (0.1-0.6); Monocytes Percent Auto 4.3 % (2.6-8.5); Neutrophils Absolute Auto 7.2 K/mm3 (1.3-6.7); Neutrophils Percent Auto 90.9 % (45.5-73.1); Platelet Count Result 223 k/mm3 (150-375); Red Blood Count 4.85 M/mm3 (4.2-5.4); Red Cell Distribution Width 13.7 % (11.5-14.5)
[2024-12-21 10:08] LABS: Alanine Aminotransferase 23 U/L (6-35); Albumin Level 4.4 g/dL (3.5-5.1); Alkaline Phosphatase 64 U/L (38-126); Anion Gap 12 mmol/L (4-12); Aspartate Amino Transferase 32 U/L (14-36); Bilirubin,Total 1.2 mg/dL (0.2-1.3); Blood Urea Nitrogen 12 mg/dL (7-17); Calcium 9.1 mg/dL (8.4-10.2); Carbon Dioxide 24 mmol/L (22-30); Chloride 106 mmol/L (98-107); Estimated CRCL calculation 116 ml/min; Estimated Glomerular Filt Rate > 60; Glucose 118 mg/dL (65-110); Lipase 44 U/L (23-300); Potassium 3.5 mmol/L (3.4-5.0); Sodium 142 mmol/L (137-145)
[2024-12-21 10:21] LABS: BEDSIDEPREGUCG Negative (Negative)
[2024-12-21 10:40] LABS: Add Urine Microscopic? YES; Appearance Urine Cloudy (Clear); Bacteria Urine 4+ /hpf; Bilirubin Urine Negative (Negative); Blood Urine 3+ (Negative); Color Urine Dark Yellow (Yellow); Glucose Urine UA Negative (Negative); Ketones Urine 1+ mg/dL (Negative); Leukocyte Esterase Ur 1+ LEU/UL (Negative); Nitrate Urine Negative (Negative); Non Pathogenic Casts 0-2; Protein Urine 1+ mg/dL (Negative); RBC Urine 51-100 /hpf (0-2); Squamous Epithelial Cell Urine Moderate /hpf (Few)
--- NOTE | 2024-12-21 10:40 | ED_ITS ---
HPI - Abdominal Pain General Chief Complaint: Abdominal Pain Stated Complaint: abd pain and vomiting Time Seen by Provider: 12/21/24 09:40 Source: patient Mode of arrival: ambulatory Limitations: no limitations History of Present Illness HPI narrative: This is a 29-year-old female that presents to the emergency department for abdominal pain and vomiting. Ongoing since last night. Denies fevers, dysuria, diarrhea. Related Data Allergies Allergy/AdvReac Type Severity Reaction Status Date / Time No Known Allergies Allergy Verified 08/17/23 15:06 Review of Systems 2 Review of Systems: CONSTITUTIONAL: Denies fever GASTROINTESTINAL: Reports abdominal pain, nausea, vomiting. Denies diarrhea. GENITOURINARY: Denies dysuria All systems reviewed & are unremarkable except as noted in HPI and below PMFSH Past Medical History Medical History (Updated 12/21/24 @ 11:53 by Chichi Boudreaux PA-C) No active medical problems Family History Family History (Updated 01/17/24 @ 13:51 by Alisha Diaz RN) Father Diabetes mellitus Grandparent Cervical cancer Grandparent Cerebrovascular accident Social History Social History Smoking status: Never smoker Second hand tobacco smoke exposure: No Substance use: never Do You Feel Safe in your Home?: Yes Lack of Transportation: No Lack of Food: Never True Current Housing: I Have Housing Concerned About Future Housing: No Difficulty Paying Gas/Electric Bills: No Difficulty Paying for Meds: No Currently Unemployed: No Education: High School Diploma/GED Difficulty w/ Childcare or Family Care: No Spiritual care concerns: No Exam 2 Narrative: GENERAL: Well-appearing, well-nourished, and in no acute distress. HEAD: Normocephalic, atraumatic. EYES: EOMI. CHEST: Clear to auscultation. No respiratory distress. No wheezes rales or rhonchi HEART: Regular rate and rhythm. No murmur heard. Normal peripheral pulses. ABDOMEN: Soft, nondistended, normal active bowel sounds. Tender to palpation throughout the abdomen, without guarding EXTREMITIES: Normal range of motion. No edema. SKIN: Warm, dry, no rash. NEURO: No focal deficits. Alert and oriented x3. PSYCH: Normal mood and affect Course Course Emergency Course: Patient updated on her workup and agrees with plan of care. Tolerating p.o. challenge. Vital Signs Vital signs: Vital Signs Temperature 97.5 F L 01/30/25 09:00 Pulse Rate 73 12/21/24 09:00 Respiratory Rate 15 12/21/24 09:00 Blood Pressure 124/80 12/21/24 09:00 Pulse Oximetry 100 12/21/24 09:00 Oxygen Delivery Room Air 12/21/24 09:00 Temperature 97.5 F L 12/21/24 09:00 Pulse Rate 65 12/21/24 11:29 Respiratory Rate 19 12/21/24 11:29 Blood Pressure 120/80 12/21/24 11:29 Pulse Oximetry 100 12/21/24 11:29 Oxygen Delivery Room Air 12/21/24 09:00 MDM - Abdominal Pain MDM Narrative Medical decision making narrative: This is a 29 year old female that presents to the ER for vomiting, abdominal pain. Ongoing since last night. She is afebrile and nontoxic appearing. Her vitals are stable. CBC without leukocytosis. Metabolic panel and lipase without concerning findings. Urine with white blood cells, patient does not endorse any urinary symptoms, this will be sent for culture. Moderate squamous epithelial cells noted as well. Also red blood cells, patient currently on her menstrual cycle. CT abdomen/pelvis without acute findings. Patient updated on her workup and agrees with plan of care. Tolerating p.o. challenge. she is to follow up with primary provider. She was given warnings to return to the ER Differential Diagnosis Differential diagnosis: Likely abdominal pain, calculus of kidney, diverticulitis, gastroenteritis and other (UTI) Lab Data Attestation: I reviewed the patient's lab results. 12/21/24 09:48 12/21/24 09:48 Labs: Lab Results 12/21/24 12/21/24 12/21/24 Range/Units 09:48 10:18 10:20 WBC 8.0 (4.5-10.0) K/mm3 RBC 4.85 (4.2-5.4) M/mm3 Hgb 12.8 D (12.0-15.0) g/dL Hct 40.8 (37.0-47.0) % MCV 84.1 (80-100) fl MCH 26.4 (26-34) pg MCHC 31.4 L (32-36) g/dl RDW 13.7 (11.5-14.5) % Plt Count 223 (150-375) k/mm3 MPV 9.2 (7.4-10.4) fl Immature Gran % (Auto) 0.4 (0-0.5) % Neut % (Auto) 90.9 H (45.5-73.1) % Lymph % (Auto) 4.3 L (18.3-44.2) % [place] % (Auto) 4.3 (2.6-8.5) % Eos % (Auto) 0.0 (0-4.4) % Baso % (Auto) 0.1 L (0.2-1.2) % Lymph # (Auto) 0.34 L (0.9-3.2) K/mm3 [place] # (Auto) 0.3 (0.1-0.6) K/mm3 Eos # (Auto) 0.0 (0-0.3) K/mm3 Baso # (Auto) 0.0 (0.0-0.1) K/mm3 Abs Immat Gran (auto) 0.03 (0.00-0.031) K/mm3 Absolute Neuts (auto) 7.2 H (1.3-6.7) K/mm3 Absolute Nucleated RBC 0.000 (0.0-0.012) K/mm3 Nucleated RBC % 0.0 (0.0-0.2) % Sodium 142 (137-145) mmol/L Potassium 3.5 (3.4-5.0) mmol/L Chloride 106 (98-107) mmol/L Carbon Dioxide 24 (22-30) mmol/L Anion Gap 12 (4-12) mmol/L BUN 12 (7-17) mg/dL Creatinine 0.65 L (0.7-1.0) mg/dL Estim Creat Clear Calc 116 ml/min Estimated GFR > 60 (59 - ) Glucose 118 H (65-110) mg/dL Calcium 9.1 (8.4-10.2) mg/dL Total Bilirubin 1.2 (0.2-1.3) mg/dL AST 32 (14-36) U/L ALT 23 (6-35) U/L Alkaline Phosphatase 64 (38-126) U/L Total Protein 8.0 (6.3-8.2) g/dL Albumin 4.4 (3.5-5.1) g/dL Lipase 44 (23-300) U/L Urine Color Dark yellow (Yellow) Urine Appearance Cloudy H (Clear) Urine pH 8.0 (5.0-9.0) Ur Specific [place] 1.030 (1.001-1.035) Urine Protein 1+ H (Negative) mg/dL Urine Glucose (UA) Negative (Negative) mg/dL Urine Ketones 1+ H (Negative) mg/dL Ur Blood (Man) 3+ H (Negative) Urine Nitrate Negative (Negative) Urine Bilirubin Negative (Negative) Urine Urobilinogen 1.0 (<2.0) mg/dL Leukocyte Esterase Rfl 1+ H (Negative) JORDYN/UL Urine RBC 51-100 H (0-2) /hpf Urine WBC 11-20 H (0-3) /hpf Ur Squamous Epith Cells Moderate (Few) /hpf Urine Bacteria 4+ H /hpf Urine Casts 0-2 POC Urine HCG, Qual Negative (Negative) Imaging Data Radiologist's impression: ITS Impressions Abdomen/Pelvis CT 12/21/24 11:11 IMPRESSION: 1. No etiology for the patient's symptoms. Critical Care Time Critical Care Time Critical Care Time: No Discharge Plan Discharge Clinical Impression: Gastroenteritis Patient Disposition: Home, Self-Care Condition: Improved Instructions: Gastroenteritis (ED), Abdominal Pain (ED) Additional Instructions: Return to the ER if you experience fever, abdominal pain with nausea and vomiting, you are unable to keep down liquids or solids, blood in the stool, pain or burning with urination, blood in the urine or any other symptoms that are concerning to you Small, frequent meals. [place] diet. Remain well hydrated. Ondansetron as needed for nausea Follow up with primary care doctor Patient Language: Canadian Prescriptions: New ondansetron 4 mg tablet,disintegrating 4 mg PO Q8H PRN (Reason: nausea and vomiting) Qty: 10 0RF Follow-up/Referrals: UNKNOWN,DOCTOR [Primary Care Provider] -
--- OUTSIDE RECORDS SUMMARY | 2024-12-21 11:02 | XMS_ITS | Clinical Summary ---
Author Organization [facility] Address [address] [place] [address] Care Team Providers Care Ink Technician Name Role Phone No, Physician Primary Care Provider [phone] Allergies No known active allergies Medications pyridoxine [...] on file Legal Sex Female 7:26 PM PYTHON WEB DEVELOPER Gender Identity Not on file Sexual Orientation Not on file Obstetrics History Last Filed Vital Signs Vital Sign Reading Time Taken Comments Blood Pressure 106/72 11/03/2023 3:23 PM PYTHON WEB DEVELOPER Pulse 83 11/03/2023 3:23 PM PYTHON WEB DEVELOPER Temperature 36.5 ??C (97.7 ??F) 11/03/2023 11:[address] Respiratory Rate 16 11/03/2023 3:23 PM PYTHON WEB DEVELOPER Oxygen Saturation 100% 11/03/2023 3:23 PM PYTHON WEB DEVELOPER Inhaled Oxygen Concentration - - Weight 64.9 kg (143 lb 1.3 oz) 11/03/2023 11:33 AM PYTHON WEB DEVELOPER Height 175.3 cm (5' 9 ) 11/03/2023 11:33 AM PYTHON WEB DEVELOPER Body Mass Index 21.13 11/03/2023 11:33 AM PYTHON WEB DEVELOPER Plan of Treatment Health Maintenance Due Date [...] patient's age to complete this topic Insurance IDWA [facility] Care Teams Ink Technician Relationship Specialty Start Date End Date No, Physician PCP - General 07/24/23
--- OUTSIDE RECORDS SUMMARY | 2024-12-21 11:02 | XMS_ITS | Referral Summary ---
Author Organization [facility] Address [address] [place] [address] Care Team Providers Care Crimping Machine Operator Name Role Phone Unavailable Primary Care Provider Unavailabl e Source Comments [facility],non-owned Affiliates and Associated Physician Practices is amultiple site organization consisting of ambulatory clinics and hospital sitesin [place], [place], [place] and [place]. This disclosure is being madepursuant to the Care Everywhere program and may not contain all information available regarding this patient. Last updated 18.[facility] [employer] Allergies No known active allergies Medications * [...] Comments Blood Pressure 112/68 11/05/2023 4:43 PM IN[employer]CTOR [employer] Pulse - - Temperature 36.8 ??C (98.3 ??F) 11/05/2023 1:43 PM CS T Respiratory Rate 18 11/05/2023 1:43 PM [employer] Oxygen Saturation 100% 11/05/2023 1:45 PM [employer] Inhaled Oxygen Concentration - - Weight 64.9 kg (143 lb) 11/05/2023 1:27 PM [employer] Height 175.3 cm (5' 9 ) 11/05/2023 1:38 PM [employer] Body Mass Index 21.12 11/05/2023 1:27 PM [employer] Functional Status Functional Status Response Date of [...]
--- OUTSIDE RECORDS SUMMARY | 2024-12-21 11:02 | XMS_ITS | Referral Summary ---
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 Gender Identity Not on file Sexual Orientation Not on file Last Filed Vital Signs Vital Sign Reading Time Taken Comments Blood Pressure 106/72 11/03/2023 3:23 PM ADULT EDUCATION PROFESSIONAL Pulse 83 11/03/2023 3:23 PM ADULT EDUCATION PROFESSIONAL Temperature 36.5 ??C (97.7 ??F) 11/03/2023 11:[address] Respiratory Rate 16 11/03/2023 3:23 PM ADULT EDUCATION PROFESSIONAL Oxygen Saturation 100% 11/03/2023 3:23 PM ADULT EDUCATION PROFESSIONAL Inhaled Oxygen Concentration - - Weight 64.9 kg (143 lb 1.3 oz) 11/03/2023 11:33 AM ADULT EDUCATION PROFESSIONAL Height 175.3 cm (5' 9 ) 11/03/2023 11:33 AM ADULT EDUCATION PROFESSIONAL Body Mass Index 21.13 11/03/2023 11:33 AM ADULT EDUCATION PROFESSIONAL Plan of Treatment Not on file Insurance [employer]WA [employer] [place] Care Teams Rehabilitation Engineer Relationship Specialty Start Date End Date No, Physician PCP - General 07/24/23
--- OUTSIDE RECORDS SUMMARY | 2024-12-21 11:02 | XMS_ITS | Clinical Summary ---
Author Organization [facility] Address [address] [place] [address]. [place], [place] [address] [place] [address] Care Team Providers Care Harmonic Analyst Name Role Phone Unavailable Primary Care [...]
--- OUTSIDE RECORDS SUMMARY | 2024-12-21 11:02 | XMS_ITS | Patient Health Summary ---
Author Organization [facility] Address [address] [place] [address] Care Team Providers Care Compound Mixer Name Role Phone Unavailable Primary Care Provider Unavailabl e Note from [facility],non-owned Affiliates and Associated Physician Practices is amultiple site organization consisting of ambulatory clinics and hospital sitesin [place], [place], [place] and [place]. This disclosure is being madepursuant to the Care Everywhere program and may not contain all information available regarding this patient. Last updated 18.[facility] [employer] Allergies No known active allergies Medications * [...] Comments Blood Pressure 112/68 11/05/2023 4:43 PM ASSISTANT PORTFOLIO MANAGER Pulse - - Temperature 36.8 ??C (98.3 ??F) 11/05/2023 1:43 PM CS T Respiratory Rate 18 11/05/2023 1:43 PM ASSISTANT PORTFOLIO MANAGER Oxygen Saturation 100% 11/05/2023 1:45 PM ASSISTANT PORTFOLIO MANAGER Inhaled Oxygen Concentration - - Weight 64.9 kg (143 lb) 11/05/2023 1:27 PM ASSISTANT PORTFOLIO MANAGER Height 175.3 cm (5' 9 ) 11/05/2023 1:38 PM ASSISTANT PORTFOLIO MANAGER Body Mass Index 21.12 11/05/2023 1:27 PM ASSISTANT PORTFOLIO MANAGER Procedures * SONOGRAM - COMPLETE(Performed 11/05/2023) Results * SONOGRAM - COMPLETE (11/05/2023 2:23 PM ASSISTANT PORTFOLIO MANAGER) Anatomical Region Laterality Modality Other 11/05/2023 2:23 PM ASSISTANT PORTFOLIO MANAGER Narrative 11/05/2023 4:12 PM ASSISTANT PORTFOLIO MANAGER ?[facility] [place] [facility] ?PHONE: ??FAX: Pat. Name: ?NORMA LEAL Pat. No: ?[id number] Study Date: ?? 11/05/2023 ??2:23pm , Age: ? 1995, 28 Pregnancies: ?? 2, Ab 1 Height: ? 69 in Weight: ? 130 lb LMP: ?05/30/2023 GA by LMP: ?22w5d GA by US: ? 22w2d ?? DARLENE: 03/08/2024 GA Selected: ??22w5d (LMP) DARLENE: ?03/05/2024 Referring MD: Ari Maurer MD Air Brake Rigger: ??Shruthi Marte RDMS CPT4: ? 24662,70861 BMI: ?19.2 Hist/Ind: ? Short cervix on outside exam MEASUREMENTS & AGE ? GROWTH EVALUATION Measurement ??GA ? Range ? Srce %for GA Ratios ----- ---- ------- BPD ??5.5 cm 22w5d ([id number]) Hadl BPD 44% FL/BPD 0.67 HC ??19.8 cm 22w0d ([id number]) Hadl HC ??11% FL/AC ??0.20 (0.20 - 0.24) AC ??18.0 cm 22w6d ([id number]) Hadl AC ??47% HC/AC ??1.10 (1.04 - 1.23) FL ?? 3.7 cm 21w5d ([id number]) Hadl FL ??12% CI ? 0.80 (0.70 - 0.86) HL ?? 3.8 cm 23w4d ([id number]) Charles HL ??64% Cere 2.3 cm 21w2d ([id number]) Hill Cere14% GA for sonogram 22w2d ([id number]) ?? Weight Estimate: based on (BPD,HC,AC,FL) Avg [...] syndromes. Case was discussed with Dr. Fernando [facility] fellow on service. RECOMMEND: Management as per inpatient service. Thank you for allowing us the opportunity to care for your patient. ?? cc: ??Inpatient at time of study ? Silvio Liu, DO ?<Electronic Signature> ??11/05/2023 04:12pm Carlos Mccormick MD [facility] ORDERABLES
--- OUTSIDE RECORDS SUMMARY | 2024-12-21 11:02 | XMS_ITS | Clinical Summary ---
Author Organization [facility] Address [address] [place] [address] Care Team Providers Care Supervisor Offset Plate Preparation Name Role Phone Unavailable Primary Care Provider Unavailabl e Source Comments [facility],non-owned Affiliates and Associated Physician Practices is amultiple site organization consisting of ambulatory clinics and hospital sitesin [place], [place], [place] and [place]. This disclosure is being madepursuant to the Care Everywhere program and may not contain all information available regarding this patient. Last updated 18.[facility] [employer] Allergies No known active allergies Medications * [...] Comments Blood Pressure 112/68 11/05/2023 4:43 PM CARDIAC CATH RN Pulse - - Temperature 36.8 ??C (98.3 ??F) 11/05/2023 1:43 PM CS T Respiratory Rate 18 11/05/2023 1:43 PM CARDIAC CATH RN Oxygen Saturation 100% 11/05/2023 1:45 PM CARDIAC CATH RN Inhaled Oxygen Concentration - - Weight 64.9 kg (143 lb) 11/05/2023 1:27 PM CARDIAC CATH RN Height 175.3 cm (5' 9 ) 11/05/2023 1:38 PM CARDIAC CATH RN Body Mass Index 21.12 11/05/2023 1:27 PM CARDIAC CATH RN Plan of Treatment Health Maintenance Due Date [...]
--- OUTSIDE RECORDS SUMMARY | 2024-12-21 11:02 | XMS_ITS | Clinical Summary ---
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
--- OUTSIDE RECORDS SUMMARY | 2024-12-21 11:03 | XMS_ITS | Data Portability ---
Author Organization [facility] [place] Address [address] [place] [address] Assessment Encounter Date Assessment Date Assessment LastModified by Organization Details LastModified Time 09/29/2024 09/29/2024 Annual gynecological exam performed. Patient will come back in a year unless there are new symptoms. Take Calcium with Vitamin D 1200mg daily if not receiving in daily diet. It is strongly advised to have an annual flu shot and up can obtain at most pharmacies. If you have not had a TDap shot in the last 10 years you should obtain one as well. Discussed with patient & provided with information regarding Gardisil vaccine to prevent the 4 strains for HPV that cause cervical cancer if under age 26. Encourage safe sexual practices, to use condoms and limit partners if not already in a monogamous relationship. Do monthly self breast exams. Have mammogram yearly or every other year depending on family history. BRCA testing is now available for patients with strong genetic history of female cancer. If interested contact the office. Engage in daily exercise of low impact aerobic exercise 45-60 minutes 4-5 times weekly. Avoid tobacco and illicit drugs as well as using moderation with alcohol intake less than 1-2 8 oz beverages daily. This lifestyle behavior pattern will lead to less health conditions and longer life span. If BMI greater than 25 weight watchers or dietary consult advised. Patient received above instructions, and questions have been answered. If you have any questions please call or respond to this email. Patient was made aware of the patient portal and may obtain a paper copy of today's plan if desired. pap collected rx for bv/yeast rx for valtrex as needed f/u one year or as needed Not available 09/30/2024 20:20:00 Plan of Treatment Reminders Order Date Submit Date Provider Last Modified By Organization Details Last Modified Time Details Appointments None recorded. Lab urinalysis, dipstick 2023 024 [email or web address] 1 [address], [address], [place], [address], 4 10:32:55 culture, urine [address] [facility] (Lab), [address], [place], [address], 4 05:51:41 culture, urine [address] [facility] (Lab), [address], [place], [address], 4 13:14:58 urinalysis, dipstick 2023 024 [email or web address] 1 [address], [address], [place], [address], 4 15:05:58 unlisted lab - [facility], JULIETTE [address] [facility] (Lab), [address], [place], [address], 4 13:14:58 Referral None recorded. Procedures None recorded. Surgeries None recorded. Imaging None recorded. Medication Orders Diflucan 200 mg tablet 2023 024 [facility] #[id number], [address] [place] [address], [id number], 4 10:32:14 valacyclovi r 500 mg tablet [address] [facility][id number], [address] [place], [place], [id number], 4 10:43:50 Diflucan 150 mg tablet 2023 [email or web address] [facility] #62630, [address] [place] [address], [id number], 4 16:32:39 Macrobid 100 mg capsule 2023 [facility] #08007, [address] [place] [address], [id number], 4 16:32:57 metronidazo le 0.75 % (37.5 mg/5 gram) vaginal gel 2023 [facility] #69248, [address] [place] [address], [id number], 16:32:51 Patient TargetsNo targets recorded. Patient InstructionsNo instructions recorded. Reason for Referral None Reported. Results Created Date Observation Date Name Description Value Unit Range Abnormal Flag Note LastModifiedBy Organization Detail LastModifiedTime 05/02/20 24 05/02/2024 CT/GC AND TRICH OMONA S VAGIN AURE (RRNA ), SWAB chlamydia trachomatis, PCR Negati ve negati ve Not Available [facility] (Lab) [address], [place], [address], 05/03/2024 11:44:42 05/02/20 24 05/02/2024 CT/GC AND TRICH OMONA S VAGIN AURE (RRNA ), SWAB neisseria gonorrhoeae, PCR Negati ve negati ve Not Available [facility] (Lab) [address], [place], [address], 05/03/2024 11:44:42 05/02/20 24 05/02/2024 CT/GC AND TRICH OMONA S VAGIN AURE (RRNA ), SWAB trichomonas vaginalis ribosomal RNA (rrna) Negati ve negati ve Not Available [facility] (Lab) [address] [facility], [place], [address], 05/03/2024 11:44:42 06/28/20 24 06/28/2024 VAGIN ITIS/ VAGIN OSIS, DNA PROBE rocael sp. detection, direct probe Negati ve negati ve Not Available [facility] (Lab) [address] [facility], [place], [address], 06/29/2024 09:24:57 06/28/20 24 06/28/2024 VAGIN ITIS/ VAGIN OSIS, DNA PROBE gardnerella vag. detection, direct probe Negati ve negati ve Not Available [facility] (Lab) [address] [facility], [place], [address], 06/29/2024 09:24:57 06/28/20 24 06/28/2024 VAGIN ITIS/ VAGIN OSIS, DNA PROBE trichomonas vag. detection, direct probe Negati ve negati ve Not Available [facility] (Lab) [address] [place], [address], 06/29/2024 09:24:57 06/28/20 24 06/28/2024 CULTU RE: URINE result report SEE RESULT S BELOW Test: Cultu re: Urine Speci men Sourc e: Urine - Clean Catch Speci men Type: Urine Speci men Date: 1147 Resul t Date: 7 Resul t Statu s: Final resul t Abnor mal: No Resul ting Lab: [facility] [address] [facility] [address] Tel: CULTU RE ----- ----- ----- --- No growt h in 1 day (dete ction level of 10,00 0 colon ies / ml.) Not Available [facility] (Lab) [address] [place], [address], 06/30/2024 05:51:41 06/28/20 24 06/28/2024 urina lysis , dipst ick Leukocytes +2 Not Available Jhony esquivel [address], [place], [address], 06/28/2024 10:30:17 06/28/20 24 06/28/2024 urina lysis , dipst ick Nitrite normal Not Available [place] [address], [place], [address], 06/28/2024 10:30:17 06/28/20 24 06/28/2024 urina lysis , dipst ick Urobilinogen normal Not Available [facility] rolf [address], [place], [address], 06/28/2024 10:30:17 06/28/20 24 06/28/2024 urina lysis , dipst ick Protein trace Not Available [place] [address], [place], [address], 06/28/2024 10:30:17 06/28/20 24 06/28/2024 urina lysis , dipst ick pH 5 Not Available [place] [address], [place], [address], 06/28/2024 10:30:17 06/28/20 24 06/28/2024 urina lysis , dipst ick Specific [place] 1.015 Not Available [facility] Alma shanthi [address], [place], [address], 06/28/2024 10:30:17 06/28/20 24 06/28/2024 urina lysis , dipst ick Ketone +1 Not Available [place] [address], [place], [address], 06/28/2024 10:30:17 06/28/20 24 06/28/2024 urina lysis , dipst ick Bilirubin normal Not Available [facility] [address], [place], [address], 06/28/2024 10:30:17 06/28/20 24 06/28/2024 urina lysis , dipst ick Glucose normal Not Available [place] [address], [place], [address], 06/28/2024 10:30:17 06/28/20 24 06/28/2024 urina lysis , dipst ick Appearance normal Not Available [facility] alvin [address], [place], [address], 06/28/2024 10:30:17 06/28/20 24 06/28/2024 urina lysis , dipst ick Color normal Not Available [place] [address], [place], [address], 06/28/2024 10:30:17 08/11/20 24 08/11/2024 CULTU RE: URINE result report SEE RESULT S BELOW Test: Cultu re: Urine Speci men Sourc e: Urine - Clean Catch Speci men Type: Urine Speci men Date: 2023 1522 Resul t Date: 2023 0558 Resul t Statu s: Final resul t Abnor mal: No Resul ting Lab: [facility] [address] [facility] [address] Tel: CULTU RE ----- ----- ----- --- No growt h in 1 day (dete ction level of 10,00 0 colon ies / ml.) Not Available [facility] (Lab) [address] [facility], [place], [address], 08/15/2024 13:14:58 08/11/20 24 08/11/2024 WOMEN 'S HEALT H SWAB, JULIETTE bacterial vaginosis (bv), tma Positi ve negati ve abnormal This test detec ts ribos omal RNA from bacte sabra assoc iated with bacte rial vagin osis (BV), inclu ding Lacto bacil donna (L. gasse ri, L. crisp atus and L. jense jeronimo), Gardn erell a vagin aure, and Atopo bium vagin ae by Trans cript ion-M ediat ed Ampli ficat ion (TMA) . A singl e quali tativ e resul t is repor marisol based on instr ument softw are to deter mine BV posit sasha or negat sasha statu s. Not Available [facility] (Lab) [address] [facility], [place], [address], 08/15/2024 13:14:58 08/11/20 24 08/11/2024 WOMEN 'S HEALT H SWAB, JULIETTE rocael species, tma Negati ve negati ve Not Available [facility] (Lab) [address] [facility], [place], [address], 08/15/2024 13:14:58 08/11/20 24 08/11/2024 WOMEN 'S HEALT H SWAB, JULIETTE rocael glabrata, tma Negati ve negati ve Not Available [facility] (Lab) [address] [facility], [place], [address], 08/15/2024 13:14:58 08/11/20 24 08/11/2024 WOMEN 'S HEALT H SWAB, JULIETTE trichomonas vaginalis, tma Negati ve negati ve This assay tests for and diffe renti ates betwe en Saritha da glabr jeni, the Saritha da speci es group (C. albic ans, C. tropi calis , C. parap herson is, C. dubli niens is), and Trich omona s vagin aure by Trans cript ion-M ediat ed Ampli ficat ion (TMA) . Not Available [facility] (Lab) [address] [facility], [place], [address], 08/15/2024 13:14:58 08/11/20 24 08/11/2024 urina lysis , dipst ick Leukocytes +3 Not Available Jhony esquivel [address], [place], [address], 08/11/2024 15:02:54 08/11/20 24 08/11/2024 urina lysis , dipst ick Nitrite normal Not Available [place] [address], [place], [address], 08/11/2024 15:02:54 08/11/20 24 08/11/2024 urina lysis , dipst ick Urobilinogen normal Not Available [facility] rolf [address], [place], [address], 08/11/2024 15:02:54 08/11/20 24 08/11/2024 urina lysis , dipst ick Protein trace Not Available [place] [address], [place], [address], 08/11/2024 15:02:54 08/11/20 24 08/11/2024 urina lysis , dipst ick pH 5 Not Available [place] [address], [place], [address], 08/11/2024 15:02:54 08/11/20 24 08/11/2024 urina lysis , dipst ick Specific [place] 1.025 Not Available [facility] Alma shanthi [address], [place], [address], 08/11/2024 15:02:54 08/11/20 24 08/11/2024 urina lysis , dipst ick Ketone +1 Not Available [place] [address], [place], [address], 08/11/2024 15:02:54 08/11/20 24 08/11/2024 urina lysis , dipst ick Bilirubin normal Not Available [facility] Almalorri miller [address], [place], [address], 08/11/2024 15:02:54 08/11/20 24 08/11/2024 urina lysis , dipst ick Glucose normal Not Available [place] [address], [place], [address], 08/11/2024 15:02:54 08/11/20 24 08/11/2024 urina lysis , dipst ick Appearance normal Not Available [facility] alvin [address], [place], [address], 08/11/2024 15:02:54 08/11/20 24 08/11/2024 urina lysis , dipst ick Color normal Not Available [place] [address], [place], [address], 08/11/2024 15:02:54 Result Notes None recorded. Problems Name Problem SNOMED Code Status Onset Date Resolution Date Notes Provider Name and Address Organization Details Recorded Time Pregnanc y 18052374 Completed 202203/02/[address] [facility] 4 12:05:48 Herpes in pregnanc y 853664037 Completed takes valtrex daily, increase to bid at 36 weeks Lexiecharlene Bond[address] [facility] 4 12:05:41 Alpha thalasse carol 09747228 Completed [facility] 4 12:05:41 Anemia 265710419 Completed 2023 1 tab slowfe daily Abraham Rodriguez [facility] 4 12:05:41 Depressi ve disorder 88164081 Completed [facility] 4 12:05:41 Nausea and vomiting 47912708 Completed zofran, scopalam ine patch [facility] 4 12:05:41 Chlamydi al infectio n 789765905 Completed tx 12/31 - NIEVES 02/13 negative Larrymichael Michael [facility], [facility] 4 12:05:41 Herpes simplex 07640445 Active 2023 Gya martinez, [facility] 4 14:51:32 Pregnanc y test negative 315643736 Completed 201601/02/2021 Encounte r for pregnanc y test, result negative ;Recorde d Elsewher e: No Locat ion: [facility] S ource: [employer] Sales Representative mlya: N Practi ce ID: 0001 Leonel lable Time: 10:45:00 AM Gay Duffy [facility], [facility] 1 10:10:44 Infectio n screenin g Completed 201601/02/2021 Encounte r for screenin g for oth infec/pa rastc diseases ;Recorde d Elsewher e: No Locat ion: [facility] S ource: [employer] Sales Representative myla: N Practi ce ID: 0001 Leonel lable Time: 11:00:00 AM Gay Duffy [facility], [facility] [address] 10:10:[address] Concept Completed 201501/02/2021 Encntr for routine child health exam w/o abnormal findings ;Recorde d Elsewher e: No Locat ion: [facility] S ource: [employer] Sales Representative myla: N Practi ce ID: 0001 Leonel lable Time: 10:45:[address] AM Gay Duffy [facility] 1 10:11:04 Syphilis test finding [id number] Completed 201501/02/2021 Encntr screen for infectio ns w sexl mode of transmis s;Record ed Elsewher e: No Locat ion: [facility] S ource: [employer] Representative myla: N Practi ce ID: [id number] Leonel lable Time: 10:45:00 AM Gay martinez [facility] 1 10:11:17 Uses combined oral contrace ption 295161625 Completed 201601/02/2021 Encounte r for surveill ance of contrace ptive pills;Re corded Elsewher e: No Locat ion: Pamela miller [facility] S ource: [employer] Sales Representative myla: N Diony ce ID: [id number] Leonel lable Time: 03:15:00 PM Gay martinez, [facility] 1 10:09:35 Insertio n of subcutan eous contrace ptive Completed 201602/19/2021 Encounte r for initial prescrip tion of implanta ble subderma l contrace ptive;Re corded Elsewher e: No Locat ion: Pamela miller [facility] N Diony ce ID: [id number] Leonel lable Time: 10:45:00 AM Gay martinez [facility] 1 09:55:19 Procedur e Completed 201601/02/2021 Encounte r for checking of implanta ble subderma l contrace ptive;Re corded Elsewher e: No [facility] N Diony ce ID: [id number] Leonel lable Time: 08:30:00 AM Gay martinez [facility] 1 10:10:53 Finding of regulari ty of menstrua l cycle Completed 201701/02/2021 Irregula r bleeding ;Recorde d Elsewher e: No Locat ion: [facility]: Fidelina Vora ce ID: 0001 Leonel lable Time: 11:00:00 AM Gay martinez [facility] 1 10:09:37 Generali zed abdomina l pain [id number] Completed 201801/02/2021 Generali zed abdomina l pain;Rec orded Elsewher e: No Locat ion: [facility] S ource: [employer] Representative myla: N Practi ce ID: [id number] Leonel lable Time: 10:45:00 AM Gay Duffy michelle [facility] 10:09:42 Finding of urine substanc e level Completed 201501/02/2021 Proteinu sabra, unspecif ied;Prac brunilda ID: [address] [facility] 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 10:11:08 Gonorrhe a of lower genitour inary tract [id number] Completed 201602/19/2021 Gonococc al infectio n of lower genitour inary tract, unsp;Pra ctice ID: [address] [facility] 09:55:17 Trichomo nal vulvovag initis [id number] Completed 201601/02/2021 Trichomo nal vulvovag initis;P ractice ID: [address] [facility] 10:11:20 Screenin g for malignan t neoplasm of cervix Completed 201601/02/2021 Screenin g for malignan t neoplasm s of the cervix;R ecorded Elsewher e: No Locat ion: [facility] S ource: [employer] Sales Representative myla: N Practi ce ID: 0001 Leonel lable Time: 10:15:00 AM Gay Duffy michelle [facility] 1 10:10:56 Vaginola bial hernia Completed 201501/02/2021 Other specifie d noninfla mmatory disorder s of vagina;R ecorded Elsewher e: No Locat ion: [facility] S ource: [employer] Representative myla: N Diony ce ID: [id number] Leonel lable Time: 10:45:00 AM Gay martinez [facility] 1 10:11:22 Acute vaginiti s [id number] Completed 201901/02/2021 Vaginiti s;Record ed Elsewher e: No Locat ion: [facility] S ource: [employer] Representative myla: N Dipeshti ce ID: [id number] Leonel lable Time: 08:15:00 AM Gay Duffy [facility] 1 10:09:33 Sexually transmit marisol infectio us disease 8862638 Completed 201601/02/2021 STD;Wesly rded Elsewher e: No Locat ion: [facility] S ource: [employer] Sales Representative myla: N Dipeshti ce ID: 0001 Leonel lable Time: 11:00:00 AM Gay martinez [facility] 1 10:11:02 Gonorrhe a [id number] Completed 201502/19/2021 Gonococc al infectio n, unspecif ied;Wesly rded Elsewher e: No Locat ion: [facility] S ource: [employer] Representative myla: N Dipeshti ce ID: [id number] Leonel lable Time: 10:45:00 AM Gay martinez [facility] 1 09:55:15 Problem Notes None recorded. Procedures Surgical History Date Name Laterality Status Provider Name and Address Organization Details Recorded Time 3 Date of Last Pap Smear completed Gay Duffy [facility] 08/04/2023 15:53:34 6 extraction of wisdom tooth completed Gay Duffy [facility] 02/13/2023 11:33:13 Imaging Results None recorded. Procedure Notes None recorded. Medical Equipment None Reported. Allergies No known drug allergies Medications Name Sig Start Date Stop Date Status Note LastModified by Organization Details LastModified Time Vitamin B-6 25 mg tablet TAKE ONE TABLET BY MOUTH THREE TIMES DAILY 09/01 completed Not Available Not Available Not Available clindamyc in HCl 300 mg capsule TAKE 1 CAPSULE BY MOUTH TWICE DAILY FOR 7 DAYS 04/15 completed Not Available Not Available Not Available fluconazo le 150 mg tablet take one tablet by mouth once now and 1 in 72 hours active Not Available Not Available No t Available fluconazo le 200 mg tablet TAKE 1 TABLET BY MOUTH EVERY OTHER DAY FOR 3 DOSES 06/28 completed Not Available Not Available Not Available metronida zole 0.75 % (37.5 mg/5 gram) vaginal gel INSERT 1 APPLICAT ORFUL VAGINALL Y EVERY DAY AT BEDTIME FOR 5 NIGHTS active Not Available Not Available No t Available ondansetr on HCl 4 mg tablet TAKE 1 TABLET BY MOUTH EVERY 8 HOURS 12/15 completed Not Available Not Available Not Available metronida zole 500 mg tablet TAKE 1 TABLET BY MOUTH TWICE DAILY FOR 7 DAYS DIRECTED 01/12 completed Not Available Not Available Not Available valacyclo vir 500 mg tablet TAKE 1 TABLET BY MOUTH TWICE DAILY active Not Available Not Available No t Available ondansetr on 8 mg disintegr ating tablet DISSOLVE 1 TABLET ON THE TONGUE TWICE DAILY FOR 15 DAYS NEEDED 11/28 completed Not Available Not Available Not Available nystatin- triamcino lone 100,000 unit/gram -0.1 % topical ointment APPLY TOPICALL Y TO THE AFFECTED AREA TWICE DAILY FOR 7 DAYS NEEDED 11/28 completed Not Available Not Available Not Available famotidin e 20 mg tablet TAKE 1 TABLET BY MOUTH EVERY DAY 02/13 completed Not Available Not Available Not Available Zoloft 50 mg tablet Take 1 tablet every day by oral route. 02/03 completed Not Available Not Available Not Available benzonata te 100 mg capsule TAKE ONE CAPSULE BY MOUTH THREE TIMES DAILY NEEDED FOR COUGH 01/27 completed Not Available Not Available Not Available triamcino lone acetonide 0.1 % topical ointment APPLY THIN LAYER TOPICALL Y TO THE AFFECTED AREA TWICE DAILY FOR 5 DAYS 11/28 completed Not Available Not Available Not Available progester one micronize d 200 mg capsule TAKE ONE CAPSULE BY MOUTH EVERY NIGHT AT BEDTIME 12/15 completed Not Available Not Available Not Available sertralin e 25 mg tablet TAKE 1 TABLET BY MOUTH EVERY DAY 09/01 completed Not Available Not Available Not Available mupirocin 2 % topical ointment APPLY TOPICALL Y TO THE AFFECTED AREA THREE TIMES DAILY FOR 7 DAYS 09/29 completed Not Available Not Available Not Available ergocalci ferol (vitamin D2) 1,250 mcg (50,000 unit) capsule take 1 capsule by oral route every week for 12 weeks 07/23 completed Not Available Not Available Not Available ibuprofen 600 mg tablet 03/29 completed Not Available Not Available Not Available scopolami ne 1 mg over 3 days transderm al patch APPLY 1 PATCH BY TRANSDER MAL ROUTE AND CHANGE EVERY 3 DAYS 12/15 completed Not Available Not Available Not Available ondansetr on 4 mg disintegr ating tablet PLACE 2 TABLETS BY TRANSLIN GUAL ROUTE TWICE A DAY FOR 7 DAYS 02/13 completed Not Available Not Available Not Available Rocephin 500 mg solution for injection inject (500MG) by intramus cular route as a single dose 01/11 completed Prescrib lyric Muñoz e: No Locat ion: Pamela miller [facility] odify By: [email or web address] z Encoun ter DateTime : 12/08/19 02:30:00 PM Not Available Not Available Not Available amoxicill in 875 mg-potass ium clavulana te 125 mg tablet TAKE 1 TABLET BY MOUTH EVERY 12 HOURS 01/27 completed Not Available Not Available Not Available azithromy l[place] 500 mg tablet TAKE 2 TABLETS BY MOUTH ONCE 01/12 completed Not Available Not Available Not Available nitrofura ntoin monohydra te/macroc rystals 100 mg capsule TAKE 1 CAPSULE BY MOUTH EVERY 12 HOURS FOR 7 DAYS 09/29 completed Not Available Not Available Not Available Valtrex 09/27 completed Not Available Not Available Not Available Lomedia 24 Fe 1 mg-20 mcg (24)/75 mg (4) tablet take 1 tablet by oral route every day 10/22 completed Prescrib ed Elsewher e: No Locat ion: Pamela miller [facility] M odify By: cherelle Miller ncounter DateTime : 10/21/20 12:07:27 PM Not Available Not Available Not Available Solosec [address] granules in packet Take 1 packet every day by oral route with meals for 1 day. 02/13 completed Not Available Not Available Not Available ID NOW COVID-19 Test Kit TEST DIRECTED 01/27 completed Not Available Not Available Not Available Vitals Date Recorded Body height Body mass index (BMI) Body weight Systolic blood pressure Diastolic blood pressure Provider Name and Address Organization Details Last Updated DateTime 04/14/2024 172.72 cm 24.5 kg/m2 13077.37 g 116 mm[Hg] 73 mm[Hg] Gay Duffy [facility] 14:15:16 Date Recorded Body height Body mass index (BMI) Body weight Provider Name and Address Organization Details Last Updated DateTime 05/02/2024 172.72 cm 24.8 kg/m2 41423.56 g [employer] [facility] 05/02/2024 12:45:59 Date Recorded Systolic blood pressure Diastolic blood pressure Provider Name and Address Organization Details Last Updated DateTime 05/02/2024 118 mm[Hg] 80 mm[Hg] Sharon Carvajal, [facility]- [address], [place], [address], [facility] 05/02/2024 13:58:10 Date Recorded Body height Body mass index (BMI) Body weight Systolic blood pressure Diastolic blood pressure Provider Name and Address Organization Details Last Updated DateTime 06/28/2024 172.72 cm 25.2 kg/m2 99279.33 g 121 mm[Hg] 79 mm[Hg] Gay Duffy [facility] 10:29:33 Date Recorded Body height Body mass index (BMI) Body weight Systolic blood pressure Diastolic blood pressure Provider Name and Address Organization Details Last Updated DateTime 08/11/2024 172.72 cm 25.2 kg/m2 37404.33 g 115 mm[Hg] 77 mm[Hg] Gay Duffy [facility] 4 11:21:18 Date Recorded Body height Body mass index (BMI) Body weight Systolic blood pressure Diastolic blood pressure Provider Name and Address Organization Details Last Updated DateTime 09/29/2024 172.72 cm 24.9 kg/m2 97084.15 g 114 mm[Hg] 74 mm[Hg] Hannah Bella [facility] 4 16:32:34 Social History Question Answer Notes LastModified by Organizat ion Details LastModified Time Tobacco Smoking Status Never Smoker Humera martinez, [facility] 04/01/2020 12:16:00 What Is Your Level Of Alcohol Consumption? None [email or web address] Information not available 12/21/2020 If You Are , What Was Your Level Of Alcohol Consumption Prior To ? None [email or web address] Information not available 12/21/2020 Are You Blind Or Do You Have Difficulty Seeing? No [email or web address] Information n ot available 02/19/2021 What Is Your Level Of Caffeine Consumption? Occasional [email or web address] Information not available 02/19/2021 In The 14 Days Before Symptom Onset, Have You Had Close Contact With A Laboratory-confirm ed COVID-19 While That Case Was Ill? No [email or web address] Information n ot available 02/19/2021 In The 14 Days Before Symptom Onset, Have You Had Close Contact With A Person Who Is Under Investigation For COVID-19 While That Person Was Ill? No [email or web address] Information not available 02/19/2021 Have You Been To An Area Known To Be High Risk For COVID-19? No [email or web address] Information not available 02/19/2021 Are You Deaf Or Do You Have Serious Difficulty Hearing? No [email or web address] Information not available 02/19/2021 What Type Of Diet Are You Following? REGULAR [email or web address] Information n ot available 02/19/2021 Which Illicit Or Recreational Drugs Have You Used? [place] Information not available 12/21/2020 Do You Use Your Seat Belt Or Car Seat Routinely? Yes [email or web address] Information not available 02/19/2021 Do You Have Smoke And Carbon Monoxide Detectors In Your Home? Yes [email or web address] Information not available 02/19/2021 Do You Feel Stressed (tense, Restless, Nervous, Or Anxious, Or Unable To Sleep At Night)? [id number] [email or web address] Information not available 02/19/2021 Do You Use Any Illicit Or Recreational Drugs? Yes [email or web address] Information not available 12/21/2020 Do You Use Sunscreen Routinely? Yes [email or web address] Information not available 02/19/2021 Has Tobacco Cessation Counseling Been Provided? No [email or web address] Information not available 12/21/2020 Have You Used IV Drugs? No [email or web address] Information not available 12/21/2020 Do You Or Have You Ever Used Any Other Forms Of Tobacco Or Nicotine? No [email or web address] Information not available 12/21/2020 Sex: Unknown Functional Status Question Answer Note LastModified by Organizat ion Details LastModified Time Do you have difficulty walking or climbing stairs? No Information not available 02/13/2023 Are you able to walk? YESWOREST [email or web address] Information not available 02/19/2021 Are you able to care for yourself? Yes [email or web address] Information not available 02/13/2023 Do you have difficulty dressing or bathing? No [email or web address] Information not available 02/13/2023 What is your exercise level? Occasional Information not available 12/21/2020 Mental Status None recorded. Family History Relationship Description Onset Age of this Age Resolved Age Notes LastModified by Organization Details LastModified Time Father Diabetes mellitus [email or web address] Not available 2019 12:15:16 Father Recurrent hepatitis [email or web address] Not available 2019 12:15:36 Maternal Grandfather Diabetes mellitus [email or web address] Not available 2019 12:15:16 Maternal Grandfather Hypertensive disorder [email or web address] Not available 2019 12:15:44 Maternal Grandmother Carcinoma of uterine cervix, invasive [email or web address] Not available 2019 12:15:58 Maternal Grandmother Malignant tumor of ovary [email or web address] Not available 02/11 /2021 10:22:47 Medical History Condition Response Allergies (Food, seasonal, environmental ) N Other N Breast Cancer N Drug/Latex Allergies/Reactions N Blood Transfusion N Dermatologic Disorders N Lung Disease N Defects or Inherited Disease N Breast Problem N Gestational Diabetes N Hematologic disorders N Anesthesia Complications N History of STI Y Deep Vein Thrombosis N Polycystic ovary syndrome N Anxiety Disorder Y Autoimmune disease N Arthritis N Infertility N Polyps N Acid Reflux (GERD) N History of abnormal pap Y Cancer N Stroke N Varicosities N Neurologic/Epilepsy N Endometriosis N High Cholesterol N Headaches N Fibromyalgia N Kidney Disease N Heart Problems N Kidney or Bladder Problems N Thyroid Problems N GI Problems N Eating Disorder N Anemia N Art (IVF or FET) N Psychiatric Illness N Ovarian Cancer N Diabetes N Pulmonary (TB, Asthma) N Hepatitis/Liver Disease N Eczema N Urinary Tract Infection N Abuse/Domestic Violence N Asthma N Trauma/Violence N Depression/ depression Y Heart Disease N Pre-Eclampsia N Hypertension N Osteoporosis N Thrombophilias N Gynecological History Statement/Question Response Abnormal Pap Yes Flow Heavy Date of LMP 09/20/2024 Was last menstrual period normal Y STIs/STDs Yes HPV Vaccine N Current Control Method None Are cycles usually normal Y Sexually Active? Y Menses Monthly Y Age of first menstrual cycle 13 Date of Last Pap Smear 08/04/2023 Sexual Problems? N Desired Control Method None LMP Approximate 12/21/2020 Obstetrics History GPAL:G 2 P 1 0 1 1 Type Value Full Term 1 Spontaneous 1 Living 1 Total 2 Past Encounters Encounter ID Performer Location Encounter Start Date Encounter Closed Date Diagnosis/Indication Diagnosis SNOMED-CT Code Diagnosis ICD10 Code Diagnosis Note [id number] Sharon Carvajal [facility] [address],[place] [address] 04/01/2020 12:09:22 04/01/2020 12:40:59 Vaginitis 04927500 A60.9 Patient's exam is suspect for vag BV/yeast & Possible HSV outbreak although minimal. We agreed on treatment of the above. Cultures sent Will treat additional ly if necessary. safe sex practices counseled on . Time spent in visit is a total of 15 mins with at least 50% of visit consisting of counseling and review of plan of care. [id number] [facility] [address] [address] 04/18/2020 12:52:50 04/18/2020 16:27:54 Vaginitis 40648426 A60.9 Vaginal exam all wnl except vaginal tissues do appear very dry. We agreed on trial of vegetable based moisturize r daily & will return if not working. Time spent in visit is a total of 15 mins with at least 50% of visit consisting of counseling and review of plan of care. [id number] Sharon Carvajal [facility] [address],[place] [address] 07/23/2020 10:05:45 07/23/2020 10:27:26 Vaginitis 89291951 A60.9 Vag cx's sent for abn d/c on exam. Will await return of results to treat. Time spent in visit is a total of 15 mins with at least 50% of visit consisting of counseling and review of plan of care. Genital he rpes simplex 25781866 A60.9 HSV like lesions upper portion gluteal crease midline. We agreed to treatment then will continue with suppressiv e therapy x 6mos as she keeps getting outbreaks every month. Rx Valtrex 500mg sent. Take one daily x 6mos. F/U x 6mos. [id number] Sharon Carvajal [facility] [address],[place] [address] 09/27/2020 15:10:37 09/27/2020 16:51:07 Postcoital bleeding 52962688 N93.0 Exam wnl We agreed to monitor for now since this was one instance & occurred right before onset of her last menses. No further questions or conerns. Time spent in visit is a total of 15 mins with at least 50% of visit consisting of counseling and review of plan of care. [id number] Sharon Carvajal [facility] [address],[place] [address] 12/21/2020 12:44:22 12/23/2020 17:59:09 Gynecologic examination 46168952 Z01.419 Take Calcium with Vitamin D 1200mg daily if not receiving in daily diet. It is strongly advised to have an annual flu shot and up can obtain at most pharmacies . If you have not had a TDap shot in the last 10 years you should obtain one as well. Discussed with patient & provided with informatio n regarding Gardisil vaccine to prevent the 4 strains for HPV that cause cervical cancer if under age 26. Encourage safe sexual practices, to use condoms and limit partners if not already in a monogamous relationsh ip. Do monthly self breast exams. Have mammogram yearly or every other year depending on family history. BRCA testing is now available for patients with strong genetic history of female cancer. If interested contact the office. Engage in daily exercise of low impact aerobic exercise 45-60 minutes 4-5 times weekly. Avoid tobacco and illicit drugs as well as using moderation with alcohol intake less than 1-2 8 oz beverages daily. This lifestyle behavior pattern will lead to less health conditions and longer life span. If BMI greater than 25 weight watchers or dietary consult advised. Patient received above instructio ns, and questions have been answered. If you have any questions please call or respond to this email. Patient was made aware of the patient portal and may obtain a paper copy of today's plan if desired. Hx of HSV on Valtrex suppressiv e therapy. 2 current sexual partners. Condoms used 100% of the time. Additional precaution james measures were taken to minimize potential exposure to the Covid-19 virus during this patient? s visit, including available hand firer electric locomotive upon arrive, temperatur e check and being asked a series of screening questions. All staff wore face coverings during this encounter, as well as provided additional cleaning and sanitizing of all surfaces, including countertop s, pens, chairs, door handles, light switches, etc, prior to and following the patient? s visit. [id number] Sharon Carvajal [facility] [address] [address] 01/27/2021 15:17:39 01/27/2021 17:40:02 Genital herpes simplex 96769980 A60.9 Here for medication check of valtrex suppressiv e therapy. Doing well on this medication . No outbreaks. Wants to continue for now to ensure she is keeping her partner safe. They are regularly using condoms as well for additional protection . Wishes to continue this therapy which is appropriat e. RF valtex x 1yr. Time spent in visit is a total of 15 mins with at least 50% of visit consisting of counseling and review of plan of care. Additional precaution james measures were taken to minimize potential exposure to the Covid-19 virus during this patient? s visit, including available hand firer electric locomotive upon arrive, temperatur e check and being asked a series of screening questions. All staff wore face coverings during this encounter, as well as provided additional cleaning and sanitizing of all surfaces, including countertop s, pens, chairs, door handles, light switches, etc, prior to and following the patient? s visit. [id number] Sharon Carvajal [facility] [address],[place] [address] 02/19/2021 09:39:01 02/19/2021 10:24:41 Vaginitis 63786380 A60.9 Vag cx's sent for abn d/c on exam suspect BV. Had unprotecte d sex. STD sent Time spent in visit is a total of 15 mins with at least 50% of visit consisting of counseling and review of plan of care. Additional precaution james measures were taken to minimize potential exposure to the Covid-19 virus during this patient? s visit, including available hand firer electric locomotive upon arrive, temperatur e check and being asked a series of screening questions. All staff wore face coverings during this encounter, as well as provided additional cleaning and sanitizing of all surfaces, including countertop s, pens, chairs, door handles, light switches, etc, prior to and following the patient? s visit. [id number] Sharon Carvajal [facility] [address],[place] [address] 04/15/2021 12:14:30 04/15/2021 13:36:37 Vaginitis 92918297 A60.9 Suspect BV/Yeast. Std sent as precaution . Nausea 747770123 R11.0 Recommend go check in with her GI doctor. Adult [facility] th examination [id number] Z00.00 Request for PCP [id number] Sharon Carvajal [facility] [address],[place] [address] 05/28/2021 14:06:26 05/28/2021 15:07:58 Genital herpes simplex 87871592 A60.9 Had an outbreak.H as an area on back of buttocks at top that is still very itchy;On exam it appears to be resolving HSV lesion.Rec ommended prn use triamcinol one, daily moisturizi ng crisco, & take Valtrex 1000mg daily x 2 days, then resume 500mg daily suppressiv e therapy. Call if have issues. Time spent in visit is a total of 15 mins with at least 50% of visit consisting of counseling and review of plan of care. Additional precaution james measures were taken to minimize potential exposure to the Covid-19 virus during this patient? s visit, including available hand firer electric locomotive upon arrive, temperatur e check and being asked a series of screening questions. All staff wore face coverings during this encounter, as well as provided additional cleaning and sanitizing of all surfaces, including countertop s, pens, chairs, door handles, light switches, etc, prior to and following the patient? s visit. [id number] Norah Do [facility] [address] [address] 12/01/2021 14:32:05 12/02/2021 17:05:05 Urinary symptoms 596516646 R39.9 Vaginitis 50103235 N76.0 Vaginal odor 809334861 N 89.8 Discussed use of mild soap like dove or ivory, cotton underwear w/out dye, hypoallerg enic detergent, wipe from front to back, avoid tub baths, keep perineum clean and dry, d/c use of baby wipes. Encouraged daily intake of yogurt or womens health probiotic. Internal and external affirm collected. 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 It was unplanned and she is still adjusting to the news. She does plan to continue . No thoughts of harming herself or others. We did discuss options for treatment and I strongly encourage counseling . Pt also desires treatment with zoloft. Discussed risks and benefits with patient. She will start today and return for follow up in 2 weeks. If any worsening of symptoms she will notify us right away. [id number] Kylah Patel [facility] [address] [address] 12/16/2021 14:32:31 12/16/2021 15:11:57 Threatened miscarriage 17326570 O20.0 Z3A.01 [id number] Anastasia Padilla MD [facility] [address],[place] [address] 12/16/2021 15:08:20 12/16/2021 16:42:18 Complete miscarriage 951239200 O03.9 [id number] Sharon Carvajal [facility] [address],[place] [address] 02/03/2022 14:45:46 02/03/2022 15:19:10 Gynecologic examination 06301199 Z01.419 Take Calcium with Vitamin D 1200mg daily if not receiving in daily diet. It is strongly advised to have an annual flu shot and up can obtain at most pharmacies . If you have not had a TDap shot in the last 10 years you should obtain one as well. Discussed with patient & provided with informatio n regarding Gardisil vaccine to prevent the 4 strains for HPV that cause cervical cancer if under age 26. Encourage safe sexual practices, to use condoms and limit partners if not already in a monogamous relationsh ip. Do monthly self breast exams. Have mammogram yearly or every other year depending on family history. BRCA testing is now available for patients with strong genetic history of female cancer. If interested contact the office. Engage in daily exercise of low impact aerobic exercise 45-60 minutes 4-5 times weekly. Avoid tobacco and illicit drugs as well as using moderation with alcohol intake less than 1-2 8 oz beverages daily. This lifestyle behavior pattern will lead to less health conditions and longer life span. If BMI greater than 25 weight watchers or dietary consult advised. Patient received above instructio ns, and questions have been answered. If you have any questions please call or respond to this email. Patient was made aware of the patient portal and may obtain a paper copy of today's plan if desired. Additional precaution james measures were taken to minimize potential exposure to the Covid-19 virus during this patient? s visit, including available hand firer electric locomotive upon arrive, temperatur e check and being asked a series of screening questions. All staff wore face coverings during this encounter, as well as provided additional cleaning and sanitizing of all surfaces, including countertop s, pens, chairs, door handles, light switches, etc, prior to and following the patient? s visit. Got a job at [employer] in March 2022 Genital he rpes simplex 82858678 A60.9 RF sent [id number] Sharon Carvajal [place] [address],[place] [address] 08/19/2022 12:40:02 08/19/2022 14:10:34 Vaginitis 06009094 A60.9 Z11.8 Z11.3 Suspect BV/Yeast. Std sent as precaution with new partner.Co unseled on medication R/B's, Most common side effects, & use. All questions were answered to patient satisfacti on. Time spent in visit is a total of 15 mins with at least 50% of visit consisting of counseling and review of plan of care. [id number] Maxine [facility] [address],[place] [address] 09/16/2022 14:56:41 09/16/2022 17:11:38 Urinary symptoms 208242577 R39.9 [id number] Sharon Carvajal [place] [address],[place] [address] 02/13/2023 11:23:20 02/13/2023 12:20:50 Herpes simplex 29160755 B00.9 Sent RF for suppressiv e therapy of HSV. Vaginitis 80642446 A60.9 Z11.8 Z11.3 STD NIEVES sent for recent +CH tested [facility].Vag initis sent to ensure this is not BV since still with some odor/disch arge. Will contact with results & send treatment to [facility] if needed. [id number] Kylah [facility] [address],[place] [address] 08/04/2023 14:17:17 08/04/2023 15:22:[id number] [facility] [address],[place] [address] 08/04/2023 14:18:33 08/04/2023 17:28:41 Amenorrhea 07203317 N91.2 Gynecologi c examination 12779155 Z01.419 Vulvovaginitis 60341034 N76.0 [id number] [facility] [address],[place] [address] 09/01/2023 13:43:23 09/01/2023 14:41:47 screening 114752244 Z36.82 Z3A.13 [id number] Ami Miranda [facility] [address],[place] [address] 09/01/2023 13:44:45 09/01/2023 15:11:04 Gestation period, 13 weeks 71899907 Z3A.13 Nausea 774658283 R11.0 Herpes simplex 30613694 B00.9 [id number] [facility] [address],[place] [address] 11/05/2023 10:59:48 11/05/2023 12:05:05 screening 621369291 Z36.3 Z3A.22 [id number] Ami Miranda [facility] [address] [place] [address] 11/05/2023 11:03:24 11/05/2023 13:13:30 Routine care 694364549 Z34.92 [id number] [facility] [address],[place] [address] 11/10/2023 17:10:39 11/10/2023 18:31:14 Short cervical length in 024165144 O26.872 Z3A.23 [id number] Gay Duffy [facility] [address] [place] [address] 11/10/2023 17:11:14 11/11/2023 08:51:40 Urinary symptoms 952742157 R39.[id number] [facility] [address] [place] [address] 11/24/2023 13:59:19 11/24/2023 14:48:05 Routine care 190855884 Z34.92 Vaginal irritation 20006 6004 N89.8 [id number] Ami Miranda [facility] [address],[place] [address] 12/15/2023 14:46:19 12/15/2023 16:16:48 Routine care 104914456 Z34.92 [id number] America [facility] [address],[place] [address] 12/15/2023 14:45:21 12/15/2023 16:00:56 Uterine size for dates discrepancy 280137095 O26.843 Z3A.28 [id number] Ami Miranda [facility] [address],[place] [address] 12/29/2023 14:56:07 12/29/2023 15:27:41 Routine care 622984501 Z34.92 [id number] [facility] [address],[place] [address] 01/12/2024 15:57:30 01/12/2024 16:45:43 Uterine size for dates discrepancy 264742887 O26.843 Z3A.32 [id number] Ami Miranda [facility] [address],[place] [address] 01/12/2024 15:57:56 01/12/2024 17:14:16 Routine care 018821735 Z34.92 [id number] Ami Miranda [facility] [address],[place] [address] 01/28/2024 14:19:53 01/28/2024 15:08:25 Pica 51814768 F50.89 Routine an tenatal care 625025133 Z34.92 [id number] Ami Miranda [facility] [address],[place] [address] 02/11/2024 14:25:45 02/11/2024 15:09:03 Routine care 147156356 Z34.92 [id number] America Hernandez [facility] [address],[place] [address] 02/18/2024 15:10:15 02/18/2024 16:21:03 Uterine size for dates discrepancy 041407967 O26.843 Z3A.[id number] [facility] [facility] [address],[place] [address] 02/18/2024 15:11:28 02/18/2024 16:45:31 Routine care 561557910 Z34.92 [id number] Ami Miranda [facility] [address],[place] [address] 02/23/2024 14:22:24 02/23/2024 14:44:29 Routine care 614626931 Z34.92 [id number] Gay Duffy [facility] [address],[place] [address] 03/29/2024 12:15:07 03/29/2024 13:24:34 care 601697272 Z39.2 Anxiety 10073846 F41.9 monitor mood, f/u 2 weeks, to ed if any suicidal thoughts [id number] Ami Miranda [facility] [address],[place] [address] 04/14/2024 14:09:56 04/14/2024 15:11:00 Mixed anxiety and depressive disorder 872898323 F41.8 resolved, continue to monitor moodany suicidal thoughts to EDf/u wwe in 6 mo [id number] [facility] [address],[place] [address] 05/02/2024 12:35:14 05/02/2024 14:15:18 Vaginitis 98182955 A60.9 Z11.8 Z11.3 Suspect yeast on exam todaySTD sent-new partnerRev iewed VCG'sCouns eled on medication R/B's, Most common side effects, & use. All questions were answered to patient satisfacti on. Time spent in visit is a total of 21 mins with at least 50% of visit consisting of counseling and review of plan of care. [id number] Ami Miranda [facility] [address],[place] [address] 06/28/2024 10:17:15 06/28/2024 10:56:34 Dysuria 73898538 R30.0 Vaginal irritation 86040 6004 N89.8 await vaginal culture Herpes simplex 12193127 B00.9 start valcyclovi r 500mgdaily for suppressio n twice a day with outbreak [id number] Gay Duffy [facility] [address],[place] [address] 08/11/2024 10:59:40 08/11/2024 15:13:41 Bacterial vaginosis 351381216 N76.0 Urinary symptoms 9468916 08 R39.9 Vaginitis 57460264 N76.0 [id number] Ami Miranda [facility] [address],[place] [address] 09/29/2024 16:09:42 10/02/2024 05:38:59 Gynecologic examination [id number] Z01.419 Health Concerns Section Related Observation LastModified by Organization Detai ls LastModified Time None Recorded Concern Status LastModified by Organization Details LastModified Time None Recorded Advance Directives Directive None Recorded Payers Encounter Date Sequence Insurance Name Policy Number Policy Maldonado Covered Member ID Maldonado Member ID Guarantor Name 04/14/2024 1 [facility] ON OR AFTER 05/22/21 (MEDICAID REPLACEMENT - HMO) Norma Leal [id number] [facility] 05/02/2024 1 [facility] ON OR AFTER 05/22/21 (MEDICAID REPLACEMENT - HMO) Norma Leal [id number] Norma Winters 06/28/2024 1 [facility] ON OR AFTER 05/22/21 (MEDICAID REPLACEMENT - HMO) Norma Leal [id number] Norma Winters 08/11/2024 1 [facility] ON OR AFTER 05/22/21 (MEDICAID REPLACEMENT - HMO) Norma Leal [id number] Norma Leal 09/29/2024 1 [facility] ON OR AFTER 05/22/21 (MEDICAID REPLACEMENT - HMO) Norma Leal [id number] Norma Leal Notes Date Note Type Note Provider Name and Address Organization Details Recorded Time 04/14/2024 text/html f/u anxiety and depressiondoing much betterstarted back at work, no concerns Ami Miranda CNM [address], [place], [address], [facility] 04/14/2024 15:05:03 05/02/2024 text/html Vaginal/Vulvar ProblemReported bypatient.Location:[facility] Onset/Timing:abrupt Duration:present for 1-7 days Quality:itching (+discharge) Severity:mild Context:new sexual partner Alleviating Factors:none Aggravating Factors:none Associated Symptoms:no vaginal pain; no vulvar itching/irritation; no vulvar swelling/erythema; no vulvar pain; no vulvar lesions; no pelvic pain; no dyspareunia; no dysuria; no fever; no abdominal pain;vaginal itching;vaginal irritation MELISSA Griffiths- [address], [place], [address], [facility] 05/02/2024 13:59:49 06/28/2024 text/html Vaginal/Vulvar ProblemReported bypatient.Notes:vagi nal burning started a few days ago, no itching, no odor, started valtrex and sxs are betterwanting to start daily supression Ami Miranda CNM [address], [place], [address], [facility] 06/28/2024 10:45:51 09/29/2024 text/html Annual GYNReport ed bypatient.History:no gynecologic complaints Menstrual cycle:Normal menses Urinary symptoms:No hematuria; No incontinence Vulva:No genital lesion Vagina:Normal vaginal discharge Breast:No breast pain; No breast lump; No nipple discharge Sexual complaints:No sexual complaints; No pain during intercourse; Normal libido Menopausal Symptoms:No menopausal symptoms; Normal vaginal lubrication Psychological symptoms:No depression; No anxiety; No PMDD Preventive measures:Encourage self breast examination; Encourage regular exercise; Encourage no tobacco use Ami Miranda CNM [address], [place], [address], [facility] 09/30/2024 20:20:41 OBGyn Episode Ob Episode Information Episode Created Date Number of Fetuses Patient Bloodtype Patient rh Status Prepregnancy Weight lbs Domestic Partner Domestic Partner Phone Father Name Interline Clerk Status 02/04/20 22 1 CLOSED Fetus Data First Name Last Name Admitted to NICU Weight (g) Sex Living Outcome Pediatric Complications Fetus ID Race Codes Race Delivery Type , Spontane ous [id number] Paul Calculation Initial Paul Date Initial Exam Date Initial Exam Provider Initial Ultrasound Date Last Menstrual Period Date Ultra Sound Weeks Gestation 0 Eighteen To Twenty Week Paul Update Ultra Sound Date Fundal Height At Umbil Quickening Date Ultra Sound Latest Weeks Gestation Final Paul Confirmed By Final Paul Confirmed Date Final Paul Date Ultra Sound Latest Days Gestation 0 0 Menstrual History Last Menstrual Date Menses Monthly On Bcp Conception Prior Menses Frequency Hcg Plus Date Menarche Onset Age Delivery Information Delivery Date Delivery Type Labor Anesthesia Weeks Gestation Incision Type Labor Labor Length Hrs Delivered By Post Complications Tubal Sterilization Discharge Date Comments 2 Discharge Information Feeding Method Contraceptive Method Maternal HG B and HCT Levels Ob Episode Information Episode Created Date Number of Fetuses Patient Bloodtype Patient rh Status Prepregnancy Weight lbs Domestic Partner Domestic Partner Phone Father Name Interline Clerk Status 09/01/20 23 1 O Positive 138 CLOSED Fetus Data First Name Last Name Admitted to NICU Weight (g) Sex Living Outcome Pediatric Complications Fetus ID Race Codes Race Delivery Type 3061.74 6 F true Full Term [id number] Vaginal Delivery Problems Problem Notes Problem Name Start Date End Date Resolution Snomed Code Not e Alpha thalassemia [id number] si lent carrier - low risk Herpes in [id number] takes valtrex daily, increase to bid at 36 weeks Anemia 12/16/2023 [id number] 1 tab slo wfe daily Depressive disorder [id number] did not start sertraline Nausea and vomiting [id number] zofran, scopalamine patch Chlamydial infection [id number] tx 12/31 - NIEVES 02/13 negative Paul Calculation Initial Paul Date Initial Exam Date Initial Exam Provider Initial Ultrasound Date Last Menstrual Period Date Ultra Sound Weeks Gestation 03/09/2024 08/04/2023 08/04/2023 05/30/2023 8 Eighteen To Twenty Week Paul Update Ultra Sound Date Fundal Height At Umbil Quickening Date Ultra Sound Latest Weeks Gestation Final Paul Confirmed By Final Paul Confirmed Date Final Paul Date Ultra Sound Latest Days Gestation 09/01/20 23 13 03/05/20 24 1 Pre-patricia Flowsheet Flowsheet Date 09/01/2023 Bond Score Blood Edema Fundus Height Fundus Units Glucose Ketones Leukocytes Nitrite Labor Signs Protein Cervic Dilation Cervic Effacement Cervic Station neg none none trace Type Weight in lbs Pre/Post Dialysis Refused Weight 132.568355640260 BP Diastolic BP Location Tested BP Systolic BP Type 74 111 Fetus Heart Rate Present Fetus Movement A No Comments 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 reviewed US wnl, valtrex 1 gm bid x 5 days then daily, scopolamine patch, precautions and education done, unsure if will keep , labs today f/u 4 weeks Flowsheet Date 11/05/2023 Bond Score Blood Edema Fundus Height Fundus Units Glucose Ketones Leukocytes Nitrite Labor Signs Protein Cervic Dilation Cervic Effacement Cervic Station Type Weight in lbs Pre/Post Dialysis Refused BP Diastolic BP Location Tested BP Systolic BP Type Fetus Heart Rate Present Fetus Movement Comments Flowsheet Date 11/05/2023 Bond Score Blood Edema Fundus Height Fundus Units Glucose Ketones Leukocytes Nitrite Labor Signs Protein Cervic Dilation Cervic Effacement Cervic Station neg none none trace Type Weight in lbs Pre/Post Dialysis Refused Weight 141.344258905060 BP Diastolic BP Location Tested BP Systolic BP Type 68 111 Fetus Heart Rate Present Fetus Movement A Yes Comments patient is having some pain, nausea and vomiting. was seen at [facility] last night abd us done, no findings was given IV fluid and po potassium, pain still present right side and contractions across the front of the abdomen US shows shortened cervical length at 1.[address] [facility], pt will have her mother drive her over now, f/u pending evaluation, precautions reviewed Flowsheet Date 11/10/2023 Bond Score Blood Edema Fundus Height Fundus Units Glucose Ketones Leukocytes Nitrite Labor Signs Protein Cervic Dilation Cervic Effacement Cervic Station Type Weight in lbs Pre/Post Dialysis Refused BP Diastolic BP Location Tested BP Systolic BP Type Fetus Heart Rate Present Fetus Movement Comments Flowsheet Date 11/10/2023 Bond Score Blood Edema Fundus Height Fundus Units Glucose Ketones Leukocytes Nitrite Labor Signs Protein Cervic Dilation Cervic Effacement Cervic Station Type Weight in lbs Pre/Post Dialysis Refused BP Diastolic BP Location Tested BP Systolic BP Type Fetus Heart Rate Present Fetus Movement Comments CL 2.9 cm Flowsheet Date 11/24/2023 Bond Score Blood Edema Fundus Height Fundus Units Glucose Ketones Leukocytes Nitrite Labor Signs Protein Cervic Dilation Cervic Effacement Cervic Station neg none 22 none trace Type Weight in lbs Pre/Post Dialysis Refused Weight 152.811888330276 BP Diastolic BP Location Tested BP Systolic BP Type 65 109 Fetus Heart Rate Present A 143 Fetus Movement A Yes Comments patient is having some disch arge. last visit pt declined going back to [facility], discussed ptl precautions at that timetoday pt has no complaints, cramping has resolved with increase hydration plan growth and gct in 3 weeksprecautions reviewed. c/o yeast infection diflucan rx to pharmacy Flowsheet Date 12/15/2023 Bond Score Blood Edema Fundus Height Fundus Units Glucose Ketones Leukocytes Nitrite Labor Signs Protein Cervic Dilation Cervic Effacement Cervic Station Type Weight in lbs Pre/Post Dialysis Refused BP Diastolic BP Location Tested BP Systolic BP Type Fetus Heart Rate Present Fetus Movement Comments Flowsheet Date 12/15/2023 Bond Score Blood Edema Fundus Height Fundus Units Glucose Ketones Leukocytes Nitrite Labor Signs Protein Cervic Dilation Cervic Effacement Cervic Station none trace Type Weight in lbs Pre/Post Dialysis Refused Weight 156.877145711410 BP Diastolic BP Location Tested BP Systolic BP Type 71 L arm 106 sitting Fetus Heart Rate Present Fetus Movement A Yes Comments patient c/o slight cramping efw 39%, doing well, GCT today, rec tdap questions answered f/u 2 weeks Flowsheet Date 12/29/2023 Bond Score Blood Edema Fundus Height Fundus Units Glucose Ketones Leukocytes Nitrite Labor Signs Protein Cervic Dilation Cervic Effacement Cervic Station neg none 27 none trace Type Weight in lbs Pre/Post Dialysis Refused Weight 154.625004715500 BP Diastolic BP Location Tested BP Systolic BP Type 73 113 Fetus Heart Rate Present A 152 Fetus Movement A Yes Comments patient is wanting std testi ng and BV testing and is currently having discharge, itching, nausea and vomiting. cultures collected, growth next visit, precautions and education Flowsheet Date 01/12/2024 Bond Score Blood Edema Fundus Height Fundus Units Glucose Ketones Leukocytes Nitrite Labor Signs Protein Cervic Dilation Cervic Effacement Cervic Station Type Weight in lbs Pre/Post Dialysis Refused BP Diastolic BP Location Tested BP Systolic BP Type Fetus Heart Rate Present Fetus Movement Comments Flowsheet Date 01/12/2024 Bond Score Blood Edema Fundus Height Fundus Units Glucose Ketones Leukocytes Nitrite Labor Signs Protein Cervic Dilation Cervic Effacement Cervic Station neg none none trace Type Weight in lbs Pre/Post Dialysis Refused Weight 158.146382862411 BP Diastolic BP Location Tested BP Systolic BP Type 72 113 Fetus Heart Rate Present Fetus Movement A Yes Comments patient is having discharge. reviewed US efw 35%, NIEVES next visit, not taking to FOB right now, unsure about who will be at delivery, time to call for preadmit, precautions and education reviewed f/u 2 weeks Flowsheet Date 01/28/2024 Bond Score Blood Edema Fundus Height Fundus Units Glucose Ketones Leukocytes Nitrite Labor Signs Protein Cervic Dilation Cervic Effacement Cervic Station neg none 30 none trace Type Weight in lbs Pre/Post Dialysis Refused Weight 160.362297453863 BP Diastolic BP Location Tested BP Systolic BP Type 67 103 Fetus Heart Rate Present A 157 Present Fetus Movement A Yes Comments growth in 3 weeks, precautio ns and education, c/o pica (chewing kleenex) check cbc, education and precautions, gbs next visit Flowsheet Date 02/11/2024 Bond Score Blood Edema Fundus Height Fundus Units Glucose Ketones Leukocytes Nitrite Labor Signs Protein Cervic Dilation Cervic Effacement Cervic Station neg none 34 none trace Type Weight in lbs Pre/Post Dialysis Refused Weight 165.807015429064 BP Diastolic BP Location Tested BP Systolic BP Type 71 112 Fetus Heart Rate Present A 145 Present Fetus Movement A Yes Comments patient states that having s ome cramping. +FM, us next visit, NIEVES today, gbs collected,f/u one week, precautions and education Flowsheet Date 02/18/2024 Bond Score Blood Edema Fundus Height Fundus Units Glucose Ketones Leukocytes Nitrite Labor Signs Protein Cervic Dilation Cervic Effacement Cervic Station Type Weight in lbs Pre/Post Dialysis Refused BP Diastolic BP Location Tested BP Systolic BP Type Fetus Heart Rate Present Fetus Movement Comments Flowsheet Date 02/18/2024 Bond Score Blood Edema Fundus Height Fundus Units Glucose Ketones Leukocytes Nitrite Labor Signs Protein Cervic Dilation Cervic Effacement Cervic Station neg none none trace Type Weight in lbs Pre/Post Dialysis Refused Weight 163.981213085720 BP Diastolic BP Location Tested BP Systolic BP Type 76 112 Fetus Heart Rate Present Fetus Movement A Yes Comments reminded about valtrex bid w ill call out new script, has flu ok for tylenol and benedryl, efw 28%, +FM, f/u one week, precautions and educstion Flowsheet Date 02/23/2024 Bond Score Blood Edema Fundus Height Fundus Units Glucose Ketones Leukocytes Nitrite Labor Signs Protein Cervic Dilation Cervic Effacement Cervic Station neg none 36 none trace Type Weight in lbs Pre/Post Dialysis Refused Weight 169.253684779505 BP Diastolic BP Location Tested BP Systolic BP Type 72 111 Fetus Heart Rate Present A 150 Fetus Movement A Yes Comments patient is having some co ntractions. doing well, precautions reviewed, +FM, baby shower this weekend, f/u one week Menstrual History Last Menstrual Date Menses Monthly On Bcp Conception Prior Menses Frequency Hcg Plus Date Menarche Onset Age 0705/30/2023 Genetic Screening And Infection History Question Response Note Mental Retardation/Autism false Patient's Age Will Be 35 Yea rs Or Older At Estimated Date of Delivery false Thalassemia (Estonian, Vietnamese, Mediterranean, Or Background): MCV < 80 false Neural Tube Defect (Meningom yelocele, Spina Bifida, Or Anencephaly) false Congenital Heart Defect false Down Syndrome false Vahid-Sachs (eg, Shinto, Cajun, Turkish-[place]) f alse Pushpa Disease false Sickle Cell Disease Or Trait () false Hemophilia Or Other Blood Disorders false Muscular Dystrophy false Cystic Fibrosis false Throckmorton's Chorea false Intellectual Disability/Autism false If Yes, Was Person Tested For Fragile X? false Other Inherited Genetic Or Chromosomal Disorder false Maternal Metabolic Disorder (eg, Type 1 Diabetes, PKU) false Patient Or Baby's Father Had A Child With Defects Not Listed Above false Recurrent Loss, Or A Stillbirth false Medications (including Suppl ements, Vitamins, Herbs, OTC Drugs), Illicit/Recreational Drugs, Alcohol true zofran, occ vitamin, valtrex If Yes, Agent(s) And Strength/Dosage false Any Other Genetic History false Live With Someone With TB Or Exposed To TB false Patient Or Partner Has Histo ry Of Genital Herpes false Rash Or Viral Illness Since Last Menstrual Period false History Of STD, Gonorrhea, C hlamydia, HPV, Syphilis false Other Infection History false History of HIV false History of Hepatitis false Prior GBS-infected child false Hemoglobinopathy Or Carrier false Other Structural Defect false Recent Travel History Outside of Country false Delivery Information Delivery Date Delivery Type Labor Anesthesia Weeks Gestation Incision Type Labor Labor Length Hrs Delivered By Post Complications Tubal Sterilization Discharge Date Comments 4 None None 38.4 false Ami Miranda CNM precip labor; Alpha thalassem ia,Anemia ,Chlamydi al infection ,Depressi ve disorder, Herpes in ,Nausea and vomiting Discharge Information Feeding Method Contraceptive Method Maternal HG B and HCT Levels
[2024-12-21] MEDS: FAMOTIDINE 20 MG/2 ML VIAL IV PUSH (11:08)
[2024-12-21] MEDS: ONDANSETRON INJ 4 MG/2 ML VIAL IV PUSH (11:08)
[2024-12-21] MEDS: SODIUM CHLORIDE 0.9% IV 1,000 ML 999 ML IV CONT (11:08)
[2024-12-21 11:29] VITALS: BP 120/80; PULSE 65; RESP 19; O2SAT 100
--- NOTE | 2024-12-21 12:06 | PC.NURSE ---
Patient is eating crackers and drinking sprite. patient tolerated po challenge well.
[2024-12-21 12:18] VITALS: BP 124/83; PULSE 95; RESP 16; O2SAT 96
== END 2024-12-21 12:19 | disposition home or self-care (01) ==
PROVIDERS: Emergency Provider Physician Assistant
DX: K52.9 Noninfective gastroenteritis and colitis, unspecified (principal)
CPT/HCPCS: 36415; 74177; 80053; 81001; 81025; 83690; 85025; 87086; 96361; 96374; 96375; 99284; J2405; J7030; Q9967